=== PATIENT | female | born 1995 | race Caucasian/White ===

== ENCOUNTER 2022-05-17 11:41 | Emergency (ER) | payer BC, SELFPAY ==
[2022-05-17 11:50] VITALS: BP 132/79; PULSE 99; RESP 18; TEMP 36.5; O2SAT 100
--- NOTE | 2022-05-17 12:54 | ED.PREGNANCY ---
HPI - General Chief complaint: HEEL BUFFER Stated complaint: leaking fluid, not feeling baby- 17 weeks preg Time Seen by Provider: 05/17/22 12:39 Source: patient Mode of arrival: other (car) Limitations: no limitations History of Present Illness HPI Narrative: Keya Horne is a 26 y/o female who is a . She is about 17 weeks with reports of having a gush of fluid leak from her vagina this AM when she got up and then about 2 other times. SHe called her OB who encouraged her to go the ED to get checked out. She reports she is still feeling the baby move. Her heart tone here is 150. She denies vaginal bleeding, denies lower abdominal pain/cramping. She admits to lower back pain but reports this has been present with the whole . Related Data Home Medications Medication Instructions Recorded Confirmed No Home Medications 05/17/22 05/17/22 Allergies Allergy/AdvReac Type Severity Reaction Status Date / Time No Known Allergies Allergy Verified 05/17/22 12:14 Review of Systems Review of Systems: CONSTITUTIONAL: Denies fever, chills, or sweats. EYES: Denies visual changes, redness, or discharge. ENT: Denies rhinorrhea, congestion, sore throat, or otalgia. CARDIOVASCULAR: Denies chest pain, palpitations, or edema. RESPIRATORY: Denies cough or dyspnea. GASTROINTESTINAL: Denies abdominal pain, nausea, vomiting, or diarrhea. GENITOURINARY: Denies dysuria or hematuria. SKIN: Denies rash or itching. MUSCULOSKELETAL: Denies back pain, joint pain, or myalgia. NEUROLOGIC: Denies headache, numbness, dizziness, or weakness. PSYCHIATRIC: Denies anxiety or depression. Reports being about 17 weeks and had 3 episodes of leaking of clear fluid from her vagina today. PMFSH Past Medical History Medical History (Updated 05/17/22 @ 13:38 by Lara France APRN) Miscarriage UTI (urinary tract infection) Exam Narrative: GENERAL: Well-appearing, well-nourished, and in no acute distress. HEAD: Normocephalic, atraumatic. EYES: PERRLA and EOMI. ENT: Nares clear, no rhinorrhea or epistaxis. Mucous membranes moist. Oropharynx without tonsillar hypertrophy exudate or other lesions. Bilateral TMs pearly horne nonbulging NECK: Supple. No adenopathy or masses. No carotid bruits or JVD CHEST: Clear to auscultation. No respiratory distress. No wheezes rales or rhonchi HEART: Regular rate and rhythm. No murmur heard. Normal peripheral pulses. ABDOMEN: Soft, nontender, nondistended, normal active bowel sounds. EXTREMITIES: Normal range of motion. No edema. SKIN: Warm, dry, no rash. NEURO: No focal deficits. Alert and oriented x3. PSYCH: Normal mood and affect. Course Consultations Consultation #1: Dr. Xiong Date: 05/17/22 Time: 13:30 Vital Signs Vital signs: Vital Signs Temperature 36.5 C 05/17/22 11:50 Pulse Rate 99 05/17/22 11:50 Respiratory Rate 18 05/17/22 11:50 Blood Pressure 132/79 05/17/22 11:50 Pulse Oximetry 100 05/17/22 11:50 Oxygen Delivery Room Air 05/17/22 11:50 Temperature 36.5 C 05/17/22 11:50 Pulse Rate 99 05/17/22 11:50 Respiratory Rate 18 05/17/22 11:50 Blood Pressure 132/79 05/17/22 11:50 Pulse Oximetry 100 05/17/22 11:50 Oxygen Delivery Room Air 05/17/22 11:50 MDM - OB/Uterine Contractions MDM Narrative Medical decision making narrative: Patient presents after noticing a gush of fluid from her vagina about 3 times today. She denies abdominal pain/cramping. Denies any vaginal bleeding. She reports some lower back pain that has been present since the start of her . Patient denies any dysuria/fever/chills. Plan to do a pelvic exam and check the PH of her vaginal fluid and will touch base with her OB Dr. Xiong. Amniotic fluid test was negative, pelvic exam completed and Cervix is closed, no bleeding noted. Patient does have thin whitish vaginal discharge. Waiting to hear back from Dr. Xiong. Talked with Dr. Xiong and
--- NOTE | 2022-05-17 13:24 | PC.NURSE ---
AROM preformed by Sindhu France APRN. AROM was negative at bedside. Pelvic exam preformed at this time as well.
[2022-05-17 13:55] VITALS: BP 137/78; PULSE 98; RESP 20; O2SAT 100
== END 2022-05-17 13:55 | disposition home or self-care (01) ==
PROVIDERS: Emergency Provider Nurse Practitioner Family; PCP Obstetrics & Gynecology
DX: O26.892 Other specified pregnancy related conditions, second trimester (principal); N89.8 Other specified noninflammatory disorders of vagina; Z87.440 Personal history of urinary (tract) infections; Z3A.17 17 weeks gestation of pregnancy
CPT/HCPCS: 99284

== ENCOUNTER 2022-09-04 13:19 | Emergency (ER) | payer BC, SELFPAY ==
[2022-09-04 13:30] VITALS: BP 133/68; PULSE 101; RESP 20; TEMP 37.4; O2SAT 100
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
== END 2022-09-04 15:04 | disposition home or self-care (01) ==
PROVIDERS: Emergency Provider Registered Nurse
DX: O99.891 Other specified diseases and conditions complicating pregnancy (principal); Z3A.00 Weeks of gestation of pregnancy not specified; H61.21 Impacted cerumen, right ear
CPT/HCPCS: 69209; 99213; A9270; G0463

== ENCOUNTER 2022-10-03 04:59 | Inpatient (IN) | payer BC, SELFPAY ==
[2022-10-03] VITALS (24 sets, daily range): BP systolic 101–157; BP diastolic 53–101; PULSE 86–108; TEMP 37.2; BMI 35.5
[2022-10-03 06:28] LABS: Basophils Absolute Auto 0.1 K/mm3 (0.0-0.1); Basophils Percent Auto 0.3 % (0.2-1.2); Eosinophils Absolute Auto 0.3 K/mm3 (0-0.3); Eosinophils Percent Auto 1.6 % (0-4.4); Hematocrit 33.5 % (37.0-47.0); Immature Granulocyte Absolute 0.11 K/mm3 (0.00-0.031); Immature Granulocyte Percent A 0.7 % (0-0.5); Lymphocytes Absolute Auto 2.86 K/mm3 (0.9-3.2); Lymphocytes Percent Auto 18.3 % (18.3-44.2); Mean Corpuscular HGB Conc 32.8 g/dl (32-36); Mean Corpuscular Hemoglobin 29.4 pg (26-34); Mean Corpuscular Volume 89.6 fl (80-100); Monocytes Absolute Auto 1.3 K/mm3 (0.1-0.6); Monocytes Percent Auto 8.2 % (2.6-8.5); Neutrophils Absolute Auto 11.1 K/mm3 (1.3-6.7); Neutrophils Percent Auto 70.9 % (45.5-73.1); Platelet Count Result 392 k/mm3 (150-375); Red Blood Count 3.74 M/mm3 (4.2-5.4); Red Cell Distribution Width 13.2 % (11.5-14.5); White Blood Count 15.6 K/mm3 (4.5-10.0)
[2022-10-03 06:29] LABS: Anion Gap 8 mmol/L (8-16); Blood Urea Nitrogen 10 mg/dL (7-17); Calcium 8.7 mg/dL (8.4-10.2); Carbon Dioxide 20 mmol/L (22-30); Chloride 105 mmol/L (98-107); Estimated Glomerular Filt Rate > 60; Glucose 85 mg/dL (65-110); Potassium 3.7 mmol/L (3.4-5.0); Sodium 133 mmol/L (137-145)
[2022-10-03] MEDS: DINOPROSTONE 10 MG VAG INSERT VAGINAL (07:20)
--- NOTE | 2022-10-03 07:23 | PM.IMHP ---
H&P: HPI History of Present Illness Date/Time: 10/03/22 07:23 Chief Complaint: IOL, for gestational hypertension, and newly diagnosed GDMA-1, blood pressures have been mild, and pt had denied any current headache, epigastric pain and visual changes, pt does have bilateral 2+ lower extremity edema. Pt diaganosed GDMA-1 after LGA noted on growth ultrasound. fastings ok, even after diet teaching breakfast range from 140-170. Will monitor closely in labor. Pt has a hx of anemia, PCOS, and GBS+. dr. samano co-managing care Review of Systems Review of Systems: All systems reviewed & are unremarkable except as noted in HPI and below PMFSH Past Medical History Medical History Miscarriage UTI (urinary tract infection) Family History Family History Father Blood disorder Social History Social History Social History: Caffeine-daily Smoking status: Never smoker Alcohol intake: former Alcohol use details: former social is 8 months Substance use: never Substance use type: does not use Lack of Transportation: No Lack of Food: Never True Current Housing: I Have Housing Concerned About Future Housing: No Difficulty Paying Gas/Electric Bills: No Difficulty Paying for Meds: No Currently Unemployed: No Education: Trade/Vocational Certificate Difficulty w/ Childcare or Family Care: No Living arrangements: with family Gender identity (if verbalized by the patient): Female Meds Home Medications and Allergies Home Medications Medication Instructions Recorded Confirmed Type ondansetron 4 mg disintegrating 4 mg PO Q6-8H PRN Nausea 09/04/22 09/13/22 History tablet prenat.vits,taj,[id number] 1 tablet PO DAILY 09/13/22 09/13/22 History Allergies Allergy/AdvReac Type Severity Reaction Status Date / Time No Known Allergies Allergy Verified 09/13/22 08:43 Vital Signs Vital Signs - 24 hr 10/03/22 07:01 10/03/22 07:16 Pulse Rate 91 98 Blood Pressure 134/73 133/74 Exam Const: General: cooperative, healthy appearing and comfortable Resp: Effort & Inspection: normal respiratory effort and able to speak in complete sentences Cardio: Rate: regular rate Rhythm: regular rhythm GI: Other: gravid, soft : Other: deferred, exam by RN Skin: General skin exam: normal color Extrem: Other: bilateral 2 + edema Psych: Appearance: grossly normal and well kempt H&P: Results Labs Labs: Short CBC 10/03/22 Range/Units 06:08 WBC 15.6 H (4.5-10.0) K/mm3 Hgb 11.0 L (12.0-15.0) g/dL Hct 33.5 L (37.0-47.0) % Plt Count 392 H (150-375) k/mm3 BMP 10/03/22 06:08 Sodium 133 L Potassium 3.7 Chloride 105 Carbon Dioxide 20 L BUN 10 Creatinine 0.50 L Glucose 85 Calcium 8.7 Assessment and Plan Assessment and plan (1) Gestational hypertension w/o significant proteinuria in 3rd trimester: Code(s): O13.3 - Gestational [-induced] hypertension without significant proteinuria, third trimester Status: Acute (2) Gestational diabetes: Code(s): O24.419 - Gestational diabetes mellitus in , unspecified control Status: Acute Plan IOL, cervadil
[2022-10-03 07:54] LABS: Glucose Point of Care 91 mg/dl (65-105)
[2022-10-03 12:16] LABS: Glucose Point of Care 167 mg/dl (65-105)
[2022-10-03 15:56] LABS: Glucose Point of Care 79 mg/dl (65-105)
[2022-10-03 15:56] LABS: Rapid Plasma Reagin Non-Reactive (NonReactive)
--- NOTE | 2022-10-03 18:00 | WPDANESEPPF ---
Anes - Initial Pre Proc Eval Procedure: Labor epidural Date/Time: 10/03/22 18:00 Surgeon: Erika Lopes CNM Pre Op Diagnosis: Labor pain Pre Op Diagnosis: IOL Patient Data Age: 27 Gender: F Height: 1.6 m Weight: 91 kg Last Vital Signs Temp 37.2 C 10/03/22 12:11 Pulse 102 H 10/03/22 13:31 BP 126/57 L 10/03/22 13:31 O2 Del Method Room Air 10/03/22 07:12 Allergies Allergy/AdvReac Type Severity Reaction Status Date / Time No Known Allergies Allergy Verified 09/13/22 08:43 Home Medications Medication Instructions Recorded Confirmed Type prenat.vits,taj,jgj-hyjt-rrezr 1 tablet PO DAILY 09/13/22 10/03/22 History Laboratory Tests 10/03/22 10/03/22 10/03/22 06:08 07:51 12:13 WBC 15.6 H K/mm3 (4.5-10.0) RBC 3.74 L M/mm3 (4.2-5.4) Hgb 11.0 L g/dL (12.0-15.0) Hct 33.5 L % (37.0-47.0) MCV 89.6 fl (80-100) MCH 29.4 pg (26-34) MCHC 32.8 g/dl (32-36) RDW 13.2 % (11.5-14.5) Plt Count 392 H k/mm3 (150-375) MPV 11.0 H fl (7.4-10.4) Immature Gran % (Auto) 0.7 H % (0-0.5) Neut % (Auto) 70.9 % (45.5-73.1) Lymph % (Auto) 18.3 % (18.3-44.2) [place] % (Auto) 8.2 % (2.6-8.5) Eos % (Auto) 1.6 % (0-4.4) Baso % (Auto) 0.3 % (0.2-1.2) Lymph # (Auto) 2.86 K/mm3 (0.9-3.2) [place] # (Auto) 1.3 H K/mm3 (0.1-0.6) Eos # (Auto) 0.3 K/mm3 (0-0.3) Baso # (Auto) 0.1 K/mm3 (0.0-0.1) Abs Immat Gran (auto) 0.11 H K/mm3 (0.00-0.031) Absolute Neuts (auto) 11.1 H K/mm3 (1.3-6.7) Absolute Nucleated RBC 0.0 K/mm3 (0.0-0.012) Nucleated RBC % 0.0 % (0.0-0.2) Sodium 133 L mmol/L (137-145) Potassium 3.7 mmol/L (3.4-5.0) Chloride 105 mmol/L (98-107) Carbon Dioxide 20 L mmol/L (22-30) Anion Gap 8 mmol/L (8-16) BUN 10 mg/dL (7-17) Creatinine 0.50 L mg/dL (0.7-1.0) Estim Creat Clear Calc Not Reportable Estimated GFR > 60 (59 - ) Glucose 85 mg/dL (65-110) POC Capillary Glucose 91 mg/dl 167 H mg/dl (65-105) (65-105) Calcium 8.7 mg/dL (8.4-10.2) RPR Non-reactive (NonReactive) Blood Type O Positive Antibody Screen Negative 10/03/22 15:52 WBC RBC Hgb Hct MCV MCH MCHC RDW Plt Count MPV Immature Gran % (Auto) Neut % (Auto) Lymph % (Auto) [place] % (Auto) Eos % (Auto) Baso % (Auto) Lymph # (Auto) [place] # (Auto) Eos # (Auto) Baso # (Auto) Abs Immat Gran (auto) Absolute Neuts (auto) Absolute Nucleated RBC Nucleated RBC % Sodium Potassium Chloride Carbon Dioxide Anion Gap BUN Creatinine Estim Creat Clear Calc Estimated GFR Glucose POC Capillary Glucose 79 mg/dl (65-105) Calcium RPR Blood Type Antibody Screen Patient hx anesthesia problems: none Family hx anesthesia problems: none Results Review: All pre-operative results and documents have been reviewed as part of the pre-operative evaluation. [facility] Past Medical History Medical History Miscarriage UTI (urinary tract infection) Family History Family History Father Blood disorder Social History Social History Social History: Caffeine-daily Smoking status: Never smoker Second hand tobacco smoke exposure: No Alcohol intake: former Alcohol use details: former social is 8 months pr
[2022-10-03] MEDS: fentaNYL CITRATE INJ (*CRX) 100 MCG/2 ML VIAL 50 MCG IV PUSH ×2 (18:36→21:42)
[2022-10-03] MEDS: LACTATED RINGERS 1,000 ML 125 ML IV CONT (20:48)
[2022-10-03 22:04] LABS: Glucose Point of Care 127 mg/dl (65-105)
[2022-10-03] MEDS: OXYTOCIN 30 UNITS/NS 500 ML 30 UNITS/500 ML BAG IV CONT (22:10)
[2022-10-03] MEDS: AMPICILLIN 2 GM/NS 100 ML 2 GM/100 ML BAG IVPB (22:11)
[2022-10-04] VITALS (261 sets, daily range): BP systolic 105–177; BP diastolic 49–149; PULSE 80–126; RESP 16–18; TEMP 36.6–38.6; O2SAT 95–100
[2022-10-04] MEDS: AMPICILLIN 1 GM/NS 50 ML 1 GM/50 ML BAG IVPB ×6 (03:09→21:54)
[2022-10-04] MEDS: LACTATED RINGERS 1,000 ML 125 ML IV CONT ×3 (03:09→17:46)
[2022-10-04 05:31] LABS: Glucose Point of Care 86 mg/dl (65-105)
--- NOTE | 2022-10-04 08:02 | PM.OBPNLAB ---
Pain Control Date/time seen: 10/04/22 08:02 SVE /-2 AROM moderate amount of clear odorless fluid, contractions q3, FHR category 1, anticipate vaginal delivery
[2022-10-04] MEDS: fentaNYL CITRATE INJ (*CRX) 100 MCG/2 ML VIAL IV PUSH (08:53)
[2022-10-04 10:54] LABS: Glucose Point of Care 81 mg/dl (65-105)
[2022-10-04 15:21] LABS: Glucose Point of Care 61 mg/dl (65-105)
[2022-10-04 18:42] LABS: Glucose Point of Care 56 mg/dl (65-105)
[2022-10-04 19:02] LABS: Glucose Point of Care 76 mg/dl (65-105)
[2022-10-04 21:05] LABS: Glucose Point of Care 65 mg/dl (65-105)
[2022-10-04] MEDS: ACETAMINOPHEN 500 MG TABLET 1000 MG (21:26)
[2022-10-04 21:31] LABS: Glucose Point of Care 73 mg/dl (65-105)
[2022-10-04] MEDS: diphenhydrAMINE HCl INJ 50 MG/ML VIAL 25 MG IV PUSH (22:52)
[2022-10-04 23:12] LABS: Glucose Point of Care 63 mg/dl (65-105)
[2022-10-04 23:39] LABS: Glucose Point of Care 62 mg/dl (65-105)
[2022-10-04 23:39] LABS: Glucose Point of Care 64 mg/dl (65-105)
[2022-10-05] VITALS (44 sets, daily range): BP systolic 96–155; BP diastolic 53–99; PULSE 102–173; RESP 16–22; TEMP 36.8–37.8; O2SAT 98–100
[2022-10-05 00:04] LABS: Glucose Point of Care 71 mg/dl (65-105)
[2022-10-05] MEDS: OXYTOCIN 30 UNITS/NS 500 ML 30 UNITS/500 ML BAG IV CONT (00:37)
[2022-10-05] MEDS: AMPICILLIN 1 GM/NS 50 ML 1 GM/50 ML BAG IVPB (00:47)
[2022-10-05] MEDS: OXYTOCIN 30 UNITS/NS 500 ML 30 UNITS/500 ML BAG 125 UNITS IV CONT ×2 (03:02→03:33)
--- NOTE | 2022-10-05 03:04 | P.PCNOB_ITS ---
OB - Delivery Note Procedure Delivery date: 10/05/22 Procedure: vaginal delivery Events: Gestational Diabetes, Gestational Hypertension and Macrosomia Induction method: AROM, Per Misoprostol Protocol, Per Pitocin Protocol and Per Cervidil Protocol Delivery monitor: External FHT, External Uterine and Internal Uterine Route of delivery: Episiotomy description: Right Mediolateral (skin only) Delivery repair: vicryl Specimen: Yes Quantitative Blood Loss (ml): 98 Anesthesia type: Epidural Disposition: Floor [place] Baby Date of : 10/05/22 Time of : 02:26 Weeks of gestation at delivery: 37 Infant gender: Male Weight (pounds): 8 Weight (ounces): 6 presentation: vertex position: Other (OA to DEBBY) Placenta delivery description: Spontaneous Cord Vessel Description: 3 Vessels and Clamped/Cut Narrative: position OA, pt unable to push past upper lip, RML, and head delivered and rotated DEBBY. pt head back, pao, called for dr and extra staff. unable to rotate, posterior arm rotated upward and after 2 minutes, posterior arm delivered and fetus then delivered without difficulty. baby to RN for evaluation, nursing secretary called and at bsdr samano notified of delivery
[2022-10-05] MEDS: HYDROcodone/acetaminophen (*CRX) 5-325 MG TABLET 1 TAB PO ×2 (04:05→11:11)
[2022-10-05] MEDS: IBUPROFEN 600 MG TABLET PO (11:10)
[2022-10-05] MEDS: TETANUS,DIPHTHERIA,AC PERTUSSIS ADULT (0.5 ML) BOOSTRIX IM (12:28)
--- NOTE | 2022-10-08 12:17 | PM.OBDSVD ---
DS: Admitting Diagnosis Discharge Date 10/05/22 Admitting Diagnosis IOL DS: Discharge Diagnosis Discharge Diagnosis (1) Vaginal delivery: Code(s): O80 - Encounter for full-term uncomplicated delivery Status: Acute OB - DS: Summary OB Procedures : PIH Mgmt OB Procedures Intrapartum: Spontaneous Vag Delivery and Other (shoulder dystocia) OB Procedures: : None Time Spent with Patient Time attestation: Total time spent providing and/or coordinating discharge services: Discharge Plan Discharge Consulting providers: Erika Lopes; Keila Espinal Discharging Clinician: Erika Lopes Patient Disposition: Home, Self-Care Activity: may shower, as tolerated and pelvic rest Diet: regular Discharge Instructions: Education: Mom and Baby Guide Given to: Mother Follow-Up: Call your delivering provider's office for an appointment to be seen in: 4 Weeks Mom and baby should come to the [facility] for the follow-up appointment. Appointment Date/Time: at What to expect at your follow-up visit: Call [phone] if you are unable to keep your appointment time. BREAST CARE: * Wear a snug supportive bra. * For engorgement discomfort: Bottle Feeding: * May apply ice packs * EPISIOTOMY/PERINEAL CARE: * Until bleeding stops, use your yanick bottle after urinating * Change your pad frequently throughout the day * You may take sitz baths several times a day (fill your bathtub with warm water and soak for 20 minutes.) Do NOT bathe in the water * No tub baths until seen by your physician - You may shower ACTIVITY: * Rest as much as possible. * Do not exercise or lift anything heavier than your baby (such as laundry or other children.) * Avoid stairs or driving as much as possible. * Do not put anything into the vagina. No douching, tampons, or sexual activity until seen by physician. NOTIFY PHYSICIAN IF YOU HAVE ANY QUESTIONS OR IF ANY OF THE FOLLOWING SYMPTOMS OCCUR: * If your episiotomy or incision becomes red, swollen, or more painful than what you have experienced in the hospital. * If your vaginal bleeding becomes foul smelling. * If your vaginal bleeding becomes more heavy than a period or if your bleeding changes from pink to bright red. However, you may pass an occasional walnut-sized clot once or twice for the first week . * If you experience a sharp, shooting pain in you calves. * If you discover a hard, reddened area on your breast or if you experience flu-like symptoms. DIET: * Eat regular, well-balanced meals. * Drink plenty of fluids daily. If , drink to thirst. Patient Instructions: Antibiotic Form Stand Alone Forms: General Discharge Information Follow-up/Referrals: Erika Lopes CNM [Certified Nurse Personal Clothing Laundry Aide] - 4 Weeks Discharge Medications: Continued prenat.vits,taj,iha-wqmn-ftnqv Tablet 1 tablet PO DAILY Date of admission: 10/03/22 04:59 Primary Care Provider: PHYSICIAN NOT ON STAFF,NONSTAFF Admitting Provider: Pepe Xiong Attending physician on admission: Pepe Xiong Condition: Stable
== END 2022-10-05 13:00 | disposition home or self-care (01) | DRG 807 ==
LOC: ANHLDR 05:12 → ANHOB2 10-05 12:19 → ANHLDR 10-08 10:44 → ANHOB2 10-08 10:44
PROVIDERS: Advanced Practice Midwife; Admitting Provider Obstetrics & Gynecology; Visit Provider Obstetrics & Gynecology
DX: O66.0 Obstructed labor due to shoulder dystocia (principal); Z37.0 Single live birth; O13.4 Gestational [pregnancy-induced] hypertension without significant proteinuria, complicating childbirth; O99.824 Streptococcus B carrier state complicating childbirth; O70.0 First degree perineal laceration during delivery; O99.284 Endocrine, nutritional and metabolic diseases complicating childbirth; E28.2 Polycystic ovarian syndrome; O24.429 Gestational diabetes mellitus in childbirth, unspecified control; Z3A.37 37 weeks gestation of pregnancy
CPT/HCPCS: 36415; 80048; 82948; 85025; 86592; 86850; 86900; 86901; 88307; 90715; A9270; J0290; J1200; J2590; J2795; J3010; J7120

== ENCOUNTER 2024-08-06 14:24 | Outpatient (CLI) | payer BC, SELFPAY ==
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
[2024-08-06 15:19] LABS: Hemoglobin 10.9 g/dL (12.0-15.0); Mean Corpuscular Hemoglobin 29.8 pg (26-34); Mean Corpuscular Volume 90.2 fl (80-100); Mean Platelet Volume 10.6 fl (7.4-10.4); Platelet Count Result 384 k/mm3 (150-375); Red Blood Count 3.66 M/mm3 (4.2-5.4); Red Cell Distribution Width 13.7 % (11.5-14.5); White Blood Count 18.3 K/mm3 (4.5-10.0)
[2024-08-06 17:07] LABS: Syphilis IgG/IgM Antibody Negative (Negative)
== END 2024-08-06 14:25 | disposition home or self-care (01) ==
LOC: ANHLAB 14:27
PROVIDERS: PCP Nurse Practitioner; Visit Provider Obstetrics & Gynecology
DX: Z01.812 Encounter for preprocedural laboratory examination (principal)
CPT/HCPCS: 36415; 85027; 86593; 86850; 86900; 86901

== ENCOUNTER 2024-08-07 05:32 | Inpatient (IN) | payer BC, SELFPAY ==
[2024-08-07] VITALS (75 sets, daily range): BP systolic 96–143; BP diastolic 54–90; PULSE 71–178; RESP 12–18; TEMP 36.7–37.4; O2SAT 95–100
--- OUTSIDE RECORDS SUMMARY | 2024-08-07 05:39 | XMS_ITS | Data Portability ---
Author Organization [facility] [place] Address [address] [place] [address] [place] [address] Care Team Providers Care Log Feeder Name Role Phone LUIS LAM Primary Care Provider [phone] Assessment Encounter Date Assessment Date Assessment LastModified by Organization Details LastModified Time 09/28/2022 09/28/2022 Patient is _36__weeks . Discussed plan. Not available 09/28/2022 11:30:37 11/09/2022 11/09/2022 normal exam f/u wwe Not available 11/09/2022 13:15:56 Plan of Treatment Reminders Order Date Submit Date Provider Last Modified By Organization Details Last Modified Time Details Appointments None recorded. Lab None recorded. Referral None recorded. Procedures None recorded. Surgeries None recorded. Imaging US, obstetric, biophysical profile + non-stress test 2022 023 [email or web address] [facility], [address], [place], [address], 18:00:37 non-stress test 2022 023 [email or web address] [facility], [address], [place], [address], 12:30:21 Medication Orders spironolact one 25 mg tablet 2022 023 [id number], [address], [place], [place], [id number], 13:16:16 Patient TargetsNo targets recorded. Patient InstructionsNo instructions recorded. Reason for Referral None Reported. Results Created Date Observation Date Name Description Value Unit Range Abnormal Flag Note LastModifiedBy Organization Detail LastModifiedTime 09/18/19 23 09/17/2022 GTT - GESTA RAQUEL L LEXX N, ACOG OB glucose, 1 hour screen 132 mg/dL 70-139 Not Available [facility] (Lab) [address] [facility] [address], [place], [address], 09/18/2022 02:24:37 09/22/1909/21/2022 CULTU RE: GROUP B STREP SCREE N, REFLE X SUSCE PTIBI LITY result report SEE RESULT S BELOW abnormal Test: Cultu re: Group B Strep , Refle x Susce ptibi lity ([facility] ) Speci men Sourc e: Vagin a/Rec belkis Speci men Type: Vagin al/Re ctal Speci men Date: 2022 11:13 AM Resul t Date: 2022 5:24 PM Resul t Statu s: Final resul t Abnor mal: Yes Resul jackie Lab: [facility] [address] [facility] [address] Tel: CULTU RE ----- ----- ----- --- Posit alphonse for Strep tococ cus agala ctiae (Grou p B) (Abno rmal) Clind amyci n susce ptibl e, eryth romyc in resis tant. The clind amyci n induc tion test ( D-t est ) is negat alphonse, there fore clind amyci n shoul d be clini broderick effec tive again st this isola te. Not Available [facility] (Lab) [address] [facility], [place], [address], 09/27/2022 18:26:39 09/29/1909/28/2022 CBC W/DIF F WBC 14.4 10'3/ uL 3.6-10 .[address] [facility] (Lab) [address], [place], [address], 09/29/2022 03:43:01 09/29/19 23 09/28/2022 CBC W/DIF F RBC 3.94 10'6/ uL (based on docume nted legal sex) 4.10-5 [address] [facility] (Lab) [address], [place], [address], 09/29/2022 03:43:01 09/29/19 23 09/28/2022 CBC W/DIF F HGB 11.5 g/dL (based on docume nted legal sex) 11.9-1 [address] [facility] (Lab) [address] [facility], [place], [address], 09/29/2022 03:43:01 09/29/19 23 09/28/2022 CBC W/DIF F HCT 35.6 % (based on docume nted legal sex) 37.4-4 [address] [facility] (Lab) [address], [place], [address], 09/29/2022 03:43:01 09/29/19 23 09/28/2022 CBC W/DIF F MCV 90.4 fL 82.0-[address] [facility] (Lab) [address], [place], [address], 09/29/2022 03:43:01 09/29/19 23 09/28/2022 CBC W/DIF F MCH 29.2 pg 27.0-[address] [facility] (Lab) [address] [facility], [place], [address], 09/29/2022 03:43:01 09/29/19 23 09/28/2022 CBC W/DIF F MCHC 32.3 g/dL 32.0-[address] [facility] (Lab) [address] [facility], [place], [address], 09/29/2022 03:43:01 09/29/19 23 09/28/2022 CBC W/DIF F RDW 13.4 % 11.0-[address] [facility] (Lab) [address] [facility], [place], [address], 09/29/2022 03:43:01 09/29/19 23 09/28/2022 CBC W/DIF F plt 364 10'3/ uL 150-[address] [facility] (Lab) [address] [facility], [place], [address], 09/29/2022 03:43:01 09/29/19 23 09/28/2022 CBC W/DIF F MPV 11.7 fL 9.8-[address] [facility] (Lab) [address] [facility], [place], [address], 09/29/2022 03:43:01 09/29/19 23 09/28/2022 CBC W/DIF F NRBC's 0.0 % [address] [facility] (Lab) [address] [facility], [place], [address], 09/29/2022 03:43:01 09/29/19 23 09/28/2022 CBC W/DIF F absolute NRBCs 0.0 10'3/ uL [address] [facility] (Lab) [address] [facility], [place], [address], 09/29/2022 03:43:01 09/29/19 23 09/28/2022 CBC W/DIF F neutrophils 76.6 % 37.0-7 2[address] [facility] (Lab) [address] [facility], [place], [address], 09/29/2022 03:43:01 09/29/19 23 09/28/2022 CBC W/DIF F lymphocytes 15.2 % 16.0-4 8[address] [facility] (Lab) [address] [facility], [place], [address], 09/29/2022 03:43:01 09/29/19 23 09/28/2022 CBC W/DIF F monocytes 5.6 % 4.0-[address] [facility] (Lab) [address] [place], [address], 09/29/2022 03:43:01 09/29/19 23 09/28/2022 CBC W/DIF F eosinophils 1.7 % 0.0-9. [address] [facility] (Lab) [address] [place], [address], 09/29/2022 03:43:01 09/29/19 23 09/28/2022 CBC W/DIF F basophils 0.3 % 0.0-2. [address] [facility] (Lab) [address] [facility], [place], [address], 09/29/2022 03:43:01 09/29/19 23 09/28/2022 CBC W/DIF F immature granulocytes 0.6 % no define d refere nce range Not Available [facility] (Lab) [address] [facility], [place], [address], 09/29/2022 03:43:01 09/29/19 23 09/28/2022 CBC W/DIF F absolute neutrophils 11.0 10'3/ uL 1.1-6. [address] [facility] (Lab) [address] [facility] [facility], [place], [address], 09/29/2022 03:43:01 09/29/19 23 09/28/2022 CBC W/DIF F absolute lymphocytes 2.2 10'3/ uL 0.7-3. [address] [facility] (Lab) [address] [place], [address], 09/29/2022 03:43:01 09/29/19 23 09/28/2022 CBC W/DIF F absolute monocytes 0.8 10'3/ uL 0.3-1. [address] [facility] (Lab) [address] [facility], [place], [address], 09/29/2022 03:43:01 09/29/19 23 09/28/2022 CBC W/DIF F absolute eosinophils 0.2 10'3/ uL 0.0-0. [address] [facility] (Lab) [address] [facility], [place], [address], 09/29/2022 03:43:01 09/29/19 23 09/28/2022 CBC W/DIF F absolute basophils 0.0 10'3/ uL 0.0-0. [address] [facility] (Lab) [address] [facility], [place], [address], 09/29/2022 03:43:01 09/29/19 23 09/28/2022 CBC W/DIF F absolute immature granulocytes 0.1 10'3/ uL 0.00-0 .10 2022 1:40 AM: P indic ates parti al resul ts on a panel have been relea sed. Addit ional resul ts will follo w. 2022 1:40 AM: This resul t has been final verif ied. No addit ional or lara ed resul ts are expec malika. Not Available [facility] (Lab) [address] [facility], [place], [address], 09/29/2022 03:43:01 09/29/19 23 09/28/2022 URIC ACID uric acid 3.4 mg/dL 2.3-6. [address] [facility] (Lab) [address] [facility] [facility], [place], [address], 09/29/2022 03:43:02 09/29/19 23 09/28/2022 CMP(C OMPRE HENSI VE METAB OLIC PANEL ) sodium 136 mmol/ L 133-[address] [facility] (Lab) [address] [facility], [place], [address], 09/29/2022 03:43:03 09/29/19 23 09/28/2022 CMP(C OMPRE HENSI VE METAB OLIC PANEL ) potassium 4.5 mmol/ L 3.5-5. [address] [facility] (Lab) [address] [facility], [place], [address], 09/29/2022 03:43:03 09/29/19 23 09/28/2022 CMP(C OMPRE HENSI VE METAB OLIC PANEL ) chloride 106 mmol/ L 98-[address] [facility] (Lab) [address] [facility], [place], [address], 09/29/2022 03:43:03 09/29/19 23 09/28/2022 CMP(C OMPRE HENSI VE METAB OLIC PANEL ) carbon dioxide 19 mmol/ L 21-[address] [facility] (Lab) [address] [facility], [place], [address], 09/29/2022 03:43:03 09/29/19 23 09/28/2022 CMP(C OMPRE HENSI VE METAB OLIC PANEL ) anion gap 11 mmol/ L 4-[address] [facility] (Lab) [address] [facility], [place], [address], 09/29/2022 03:43:03 09/29/19 23 09/28/2022 CMP(C OMPRE HENSI VE METAB OLIC PANEL ) blood urea nitrogen 8 mg/dL 7-25 Not Available [facility] (Lab) [address] [facility] [address], [place], [address], 09/29/2022 03:43:03 09/29/19 23 09/28/2022 CMP(C OMPRE HENSI VE METAB OLIC PANEL ) creatinine 0.58 mg/dL 0.60-1 .[address] [facility] (Lab) [address] [facility], [place], [address], 09/29/2022 03:43:03 09/29/19 23 09/28/2022 CMP(C OMPRE HENSI VE METAB OLIC PANEL ) egfrcr (CKD-epi 2020) >90 mL/mi n/1.7 3_m2 >=[address] [facility] (Lab) [address], [place], [address], 09/29/2022 03:43:03 09/29/19 23 09/28/2022 CMP(C OMPRE HENSI VE METAB OLIC PANEL ) calcium 9.0 mg/dL 8.3-[address] [facility] (Lab) [address], [place], [address], 09/29/2022 03:43:03 09/29/19 23 09/28/2022 CMP(C OMPRE HENSI VE METAB OLIC PANEL ) glucose 97 mg/dL 70-[address] [facility] (Lab) [address], [place], [address], 09/29/2022 03:43:03 09/29/19 23 09/28/2022 CMP(C OMPRE HENSI VE METAB OLIC PANEL ) protein, total 6.1 g/dL 6.4-8. [address] [facility] (Lab) [address], [place], [address], 09/29/2022 03:43:03 09/29/19 23 09/28/2022 CMP(C OMPRE HENSI VE METAB OLIC PANEL ) albumin 3.2 g/dL 3.5-5. [address] [facility] (Lab) [address], [place], [address], 09/29/2022 03:43:03 09/29/19 23 09/28/2022 CMP(C OMPRE HENSI VE METAB OLIC PANEL ) ALT 9 units /L 9-[address] [facility] (Lab) [address], [place], [address], 09/29/2022 03:43:03 09/29/19 23 09/28/2022 CMP(C OMPRE HENSI VE METAB OLIC PANEL ) alkaline phosphatase 163 units /L 34-[address] [facility] (Lab) [address] [facility], [place], [address], 09/29/2022 03:43:03 09/29/19 23 09/28/2022 CMP(C OMPRE HENSI VE METAB OLIC PANEL ) AST 11 units /L 13-[address] [facility] (Lab) [address] [facility], [place], [address], 09/29/2022 03:43:03 09/29/19 23 09/28/2022 CMP(C OMPRE HENSI VE METAB OLIC PANEL ) bilirubin, total 0.5 mg/dL 0.2-1. [address] [facility] (Lab) [address] [facility], [place], [address], 09/29/2022 03:43:03 09/29/19 23 09/28/2022 PROTE IN/CR EATIN INE RATIO , URINE creatinine, urine 117.1 mg/dL R-No refer ence range estab lishe d for this assay Not Available [facility] (Lab) [address] [facility], [place], [address], 09/29/2022 03:43:03 09/29/19 23 09/28/2022 PROTE IN/CR EATIN INE RATIO , URINE protein, urine 31 mg/dL R-No refer ence range estab lishe d for this assay Not Available [facility] (Lab) [address] [facility], [place], [address], 09/29/2022 03:43:03 09/29/19 23 09/28/2022 PROTE IN/CR EATIN INE RATIO , URINE protein/crea tinine ratio, urine 0.26 . No Refer ence Range avail able for Rando m Urine s. A prote in to creat inine ratio of >=0.1 9 is a good predi ctor of rajinderi fican t prote inuri a. A level of <0.14 can rule out signi fican t prote inuri a. Not Available [facility] (Lab) [address], [place], [address], 09/29/2022 03:43:03 09/15/19 23 09/14/2022 US, obste tric, follo w-up No observ ation record ed. [email or web address] [facility] [address], [place], [address], 09/14/2022 18:03:37 09/15/19 23 09/14/2022 US, obste tric, follo w-up No observ ation record ed. [email or web address] [address], [place], [address], 09/17/2022 10:50:55 09/29/19 23 09/28/2022 non-s tress test No observ ation record ed. [email or web address] [facility] [address], [place], [address], 09/28/2022 12:26:03 09/29/19 23 09/28/2022 US, obste tric, bioph ysica l profi le + non-s tress test No observ ation record ed. [email or web address] [facility] [address], [place], [address], 09/28/2022 13:46:12 09/29/19 23 09/28/2022 US, obste tric, bioph ysica l profi le + non-s tress test No observ ation record ed. KATIE [address], [place], [address], 10/08/2022 19:29:31 Result Notes None recorded. 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 3 14:47:55 Prediabe leonardo 077747030 Active 2021 Silvia Odonnell MD [address], [place], [address], [place] [facility] 2 09:46:57 Pregnanc y 17791116 Completed 202111/05/2022 Anayeli Portillo [facility], [facility] 3 14:48:01 Increase d blood pressure 57114862 [facility] 3 14:47:55 Polycyst ic ovary syndrome 719041832 Completed 2021 Luciamadelyn Portillo [facility] 3 14:47:55 Anemia 468576105 Completed 2022 1 tab slowfe daily [facility] Pe[facility] Portillo [facility], [facility] 3 14:47:55 Gestatio nal diabetes mellitus 56759126 Completed [facility] Portillo [facility] 3 14:47:55 Problem Notes None recorded. Procedures Surgical History Date Name Laterality Status Provider Name and Address Organization Details Recorded Time 2 Date of Last Pap Smear completed Jeimy Guzman [facility] 03/19/2022 09:26:36 2 Dilation and Curettage completed Jeimy Guzman [facility] 08/03/2022 10:02:33 Imaging Results Imaging Date Name Status LastModified by Organiz ation Details LastModified Time 09/14/2022 US, obstetric, follow-up completed alannah Casey [address], [place], [address], 09/14/2022 18:03:37 09/14/2022 US, obstetric, follow-up completed [email or web address] [address], [place], [address], 09/17/2022 10:50:55 09/28/2022 non-stress test completed [email or web address] [place] [address], [place], [address], 09/28/2022 12:26:03 09/28/2022 US, obstetric, biophysical profile + non-stress test completed [email or web address] [facility] [address], [place], [address], 09/28/2022 13:46:12 09/28/2022 US, obstetric, biophysical profile + non-stress test completed KATIE [address], [place], [address], 10/08/2022 19:29:31 Procedure Notes None recorded. Medical Equipment None Reported. Allergies No known drug allergies Medications Name Sig Start Date Stop Date Status Note LastModified by Organization Details LastModified Time medroxypr ogesteron e 10 mg tablet TAKE 1 TABLET BY MOUTH ONCE FOR 10 DAYS. REPORT CD ONCE BLEEDING STARTS 03/19 completed Not Available Not Available Not Available neomycin- polymyxin -hydrocor t 3.5 mg/mL-10, 000 unit/mL-1 % ear solution INSTILL 3 DROPS TO RIGHT EAR THREE TIMES DAILY FOR 7 DAYS 09/21 completed Not Available Not Available Not Available BD Luer-Adelita Syringe 3 mL 25 x 1 1/2 USE ONCE IN THE EVENING FOR IN THE MUSCLE INJECTIO N INTO BUTTOCKS WITH PROGESTE HERIBERTO IN OIL 04/09 completed Not Available Not Available Not Available clomiphen e citrate 50 mg tablet TAKE 2 TABLETS BY MOUTH EVERY MORNING FOR 3 DAYS 12/18 completed Not Available Not Available Not Available phentermi ne 37.5 mg tablet TAKE 1 TABLET BY MOUTH EVERY MORNING BEFORE BREAKFAS T active Not Available Not Available No t Available spironola ctone 25 mg tablet TAKE 1 TABLET BY MOUTH EVERY DAY active Not Available Not Available No t Available progester one 50 mg/mL intramusc ular oil 04/09 completed Not Available Not Available Not Available Hypodermi c Hickman 18 gauge x 1 1/2 12/18 completed Not Available Not Available Not Available metformin 1,000 mg tablet TAKE 1 TABLET BY MOUTH TWICE DAILY 12/18 completed Not Available Not Available Not Available estradiol 2 mg tablet TAKE 3 TABLETS BY MOUTH EVERY MORNING 12/18 completed Not Available Not Available Not Available ondansetr on 4 mg disintegr ating tablet DISSOLVE 1 TABLET ON THE TONGUE EVERY 8 HOURS 11/09 completed Not Available Not Available Not Available Ortho Tri-Cycle n (28) 0.18 mg(7)/0.2 15mg(7)/0 .25 mg(7)-0.0 35 mg tablet take 1 tablet by oral route every day 12/18 completed Prescrib ed Nuzhat e: No Locat ion: Malaika hernandez [facility] M odify By: [email or web address] h Encoun ter DateTime : 10/17/19 17 12:00:00 PM Not Available Not Available Not Available Ovidrel 250 mcg/0.5 mL subcutane ous syringe ADMINIST ER 1 SYRINGE UNDER THE SKIN EVERY DAY 12/18 completed Not Available Not Available Not Available Folplex 2.2 mg-25 mg-0.5 mg tablet TAKE 1 TABLET BY MOUTH EVERY DAY 12/18 completed Not Available Not Available Not Available nitrofura ntoin monohydra te/macroc rystals 100 mg capsule TAKE 1 CAPSULE BY MOUTH EVERY 12 HOURS FOR 7 DAYS DIRECTED 11/09 completed Not Available Not Available Not Available Vitamin 11/09 completed Not Available Not Available Not Available Baby Aspirin 11/09 completed Not Available Not Available Not Available Micro Thin Lancets 33 gauge TEST FOUR TIMES DAILY DIRECTED 09/14 completed Not Available Not Available Not Available + DHA 28 mg iron-800 mcg-200 mg oral pack TAKE 1 CAPSULE BY MOUTH ONCE DAILY 12/18 completed Not Available Not Available Not Available True Metrix Glucose Test Strip 09/14 completed Not Available Not Available Not Available True Metrix Air Glucose Meter TEST FOUR TIMES DAILY DIRECTED 09/14 completed Not Available Not Available Not Available Vitals Date Recorded Body height Body mass index (BMI) Body weight Systolic blood pressure Diastolic blood pressure Provider Name and Address Organization Details Last Updated DateTime 09/28/2022 160.02 cm 38.1 kg/m2 69111.35 955 g 146 mm[Hg] 82 mm[Hg] Jeimy Guzman [facility] 3 11:10:26 Date Recorded Body height Body mass index (BMI) Body weight Systolic blood pressure Diastolic blood pressure Systolic blood pressure Diastolic blood pressure Systolic blood pressure Diastolic blood pressure Provider Name and Address Organization Details Last Updated DateTime 3 160.02 cm 32.9 kg/m2 44293.1 8 g 151 mm[Hg] 106 mm[Hg] 160 mm[Hg] 100 mm[Hg] 140 mm[Hg] 85 mm[Hg] Jeimy Guzman [facility] 3 13:59:03 Social History Question Answer Notes LastModified by Organizat ion Details LastModified Time Tobacco Smoking Status Never Smoker Jeimy Guzman [facility], [facility] 03/19/2022 10:43:52 Do You Have An Advance Directive? No [email or web address] Information n ot available 03/19/2022 What Is Your Level Of Alcohol Consumption? Moderate [email or web address] Information not available 03/19/2022 How Many Years Have You Consumed Alcohol? 10 [email or web address] Information not available 03/19/2022 Are You Blind Or Do You Have Difficulty Seeing? No [email or web address] Information n ot available 03/19/2022 What Is Your Level Of Caffeine Consumption? Heavy [email or web address] Information not available 03/19/2022 In The 14 Days Before Symptom Onset, Have You Had Close Contact With A Laboratory-confirm ed COVID-19 While That Case Was Ill? No [email or web address] Information n ot available 03/19/2022 In The 14 Days Before Symptom Onset, Have You Had Close Contact With A Person Who Is Under Investigation For COVID-19 While That Person Was Ill? No [email or web address] Information not available 03/19/2022 Have You Been To An Area Known To Be High Risk For COVID-19? No [email or web address] Information not available 03/19/2022 Are You Deaf Or Do You Have Serious Difficulty Hearing? No [email or web address] Information not available 03/19/2022 What Type Of Diet Are You Following? REGULAR [email or web address] Information n ot available 03/19/2022 What Is The Highest Grade Or Level Of School You Have Completed Or The Highest Degree You Have Received? 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 Yes [email or web address] Information not available 03/19/2022 Have You Ever Been Counseled For Unhealthy Alcohol Use? No [email or web address] Information not available 03/19/2022 Do You Use Protection During Sex? No [email or web address] Information not available 03/19/2022 Do You Use Your Seat Belt Or Car Seat Routinely? Yes [email or web address] Information not available 03/19/2022 Do You Have Smoke And Carbon Monoxide Detectors In Your Home? Yes Information not available 03/19/2022 How Much Tobacco Do You Smoke? No [email or web address] Information not available 03/19/2022 Do You Feel Stressed (tense, Restless, Nervous, Or Anxious, Or Unable To Sleep At Night)? [id number] [email or web address] Information not available 03/19/2022 Do You Use Any Illicit Or Recreational Drugs? No [email or web address] Information not available 12/18/2021 Do You Use Sunscreen Routinely? No [email or web address] Information not available 03/19/2022 Has Tobacco Cessation Counseling Been Provided? No [email or web address] Information not available 03/19/2022 Have You Used IV Drugs? No [email or web address] Information not available 03/19/2022 Do You Or Have You Ever Used Any Other Forms Of Tobacco Or Nicotine? No [email or web address] Information not available 03/19/2022 Sex: Unknown Functional Status Question Answer Note LastModified by Organizat ion Details LastModified Time Do you have difficulty walking or climbing stairs? No Information not available 03/19/2022 Are you able to walk? YESWOREST [email or web address] Information not available 03/19/2022 Are you able to care for yourself? Yes [email or web address] Information not available 03/19/2022 Do you have difficulty dressing or bathing? No [email or web address] Information not available 03/19/2022 What is your exercise level? Occasional [email or web address] Information not available 03/19/2022 Mental Status None recorded. Family History Nothing Reported. Medical History Condition Response Allergies (Food, seasonal, environmental ) N Other N Drug/Latex Allergies/Reactions N Blood Transfusion N Breast Cancer N Dermatologic Disorders N Lung Disease N Defects or Inherited Disease N Breast Problem N Gestational Diabetes N Hematologic disorders N Anesthesia Complications N History of STI N Deep Vein Thrombosis N Polycystic ovary syndrome Y Anxiety Disorder N Autoimmune disease N Arthritis N Polyps N Infertility N Acid Reflux (GERD) N History of abnormal pap N Cancer N Varicosities N Stroke N Neurologic/Epilepsy N Endometriosis N High Cholesterol N Fibromyalgia N Headaches N Kidney Disease N Heart Problems N Thyroid Problems N Kidney or Bladder Problems N GI Problems N Eating Disorder N Anemia N Art (IVF or FET) N Psychiatric Illness N Ovarian Cancer N Diabetes N Pulmonary (TB, Asthma) N Hepatitis/Liver Disease N No Past Medical History N Eczema N Urinary Tract Infection N Abuse/Domestic Violence N Asthma N Trauma/Violence N Depression/ depression N Heart Disease N Pre-Eclampsia N Hypertension N Osteoporosis N Thrombophilias N Gynecological History Statement/Question Response Date of LMP On BCP's at Conception? N N Was last menstrual period normal N STIs/STDs N HPV Vaccine N Duration of Flow (days) 4 Current Control Method None Frequency of Cycle (Q days) 33 Sexually Active? Y Age of first menstrual cycle 20 Date of Last Pap Smear 12/18/2021 Sexual Problems? N LMP Approximate N Obstetrics History GPAL:G 2 P 1 0 1 1 Type Value Full Term 1 Spontaneous 1 Living 1 Total 2 Past Encounters Encounter ID Performer Location Encounter Start Date Encounter Closed Date Diagnosis/Indication Diagnosis SNOMED-CT Code Diagnosis ICD10 Code Diagnosis Note [id number] Silvia Odonnell MD [facility] [address] [address] 12/18/2021 16:51:59 12/25/2021 15:19:40 test positive [id number] Z32.01 Polycystic ovary syndrome 316433993 E28.2 Prediabetes 701478694 R7 3.03 Venereal d isease screening [id number] Z11.3 Screening for malignant neoplasm of cervix 808120748 Z12.4 Family his tory of antiphospholipid syndrome [id number] Z83.2 [id number] [facility] [address],[place] [address] 12/18/2021 16:54:52 12/19/2021 16:13:46 screening [id number] Z36.87 [id number] Kate Jolley [facility] [address],[place] [address] 03/19/2022 09:30:36 03/19/2022 12:42:48 Subchorionic hematoma [id number] O41.8X99 [id number] Mariella Camacho [facility] [address],[place] [address] 03/19/2022 09:31:54 03/20/2022 16:41:57 test positive 473266010 Z32.01 Risk factors addressed: Tobacco Cessation, Safe Sexual Practices, environmen malou, work hazards, travel restrictio ns, seat belt use.Eat a health well balanced diet, avoid alcohol, tobacco, and street drugs.Enga ge in daily low impact exercise, avoid temperatur e extremes, and cat, rodent, and bird feces.Avoi d travel to areas where zika virus is a concern.Of fered cf/sma/nip t. Handouts given and discussed with patient. Planning on doing screenings . Would like screening at 10 weeks.Chil dbirth classes recommende d.New OB sheet given.If previous , counseling .Pt verbalizes that she understand s the importance of above instructio ns.All questions were answered.P atient reminded to have annual well woman examinatio n and address [facility] . [id number] [facility] [address],[place] [address] 04/09/2022 09:32:34 04/09/2022 14:16:25 screening [id number] Z36.82 [id number] Matthew Samano MD [facility] [address],[place] [address] 04/09/2022 09:39:17 04/09/2022 12:51:37 Routine care [id number] Z34.81 [id number] [facility] [address],[place] [address] 05/09/2022 11:07:11 05/09/2022 11:41:26 Routine care [id number] Z34.92 [id number] Deanna Romero [facility] [address],[place] [address] 06/07/2022 09:51:33 06/07/2022 11:15:52 screening for malformation 068901593 Z36.3 [id number] Erika Lopes [facility] [address],[place] [address] 06/08/2022 09:27:24 06/08/2022 10:37:31 [id number] Jeimy Guzman [facility] [address],[place] [address] 07/06/2022 16:36:06 07/06/2022 17:10:43 Routine care [id number] Z34.92 [id number] Erika Lopes [facility] [address],[place] [address] 08/03/2022 09:46:48 08/03/2022 10:24:43 Routine care 668167510 Z34.92 [id number] Erika Lopes [facility] [address] [place] [address] 08/17/2022 16:27:36 08/17/2022 16:56:41 Routine care [id number] Z34.92 [id number] Erika Lopes [facility] [address] [place] [address] 08/31/2022 13:53:05 08/31/2022 14:44:48 Routine care 941832548 Z34.92 Nausea and vomiting 1693 2000 R11.2 [id number] Rylee Sherman [facility] [address],[place] [address] 09/14/2022 09:59:18 09/14/2022 10:54:05 Chronic hypertension complicating AND/OR reason for care during [id number] O16.9 O26.843 Z3A.34 [id number] Erika Lopes [facility] [address],[place] [address] 09/14/2022 09:59:35 09/14/2022 14:41:12 Routine care [id number] Z34.92 [id number] Erika Lopes [facility] [address],[place] [address] 09/21/2022 10:26:51 09/21/2022 16:10:29 Routine care [id number] Z34.92 [id number] Erika Lopes [facility] [address],[place] [address] 09/28/2022 10:30:31 09/28/2022 11:32:02 Routine care 810319336 Z34.92 [id number] [facility] [address],[place] [address] 09/28/2022 11:39:34 09/28/2022 12:30:21 Gestational diabetes mellitus 63778531 O24.419 [id number] Zenobia [facility] [address],[place] [address] 09/28/2022 12:20:00 09/28/2022 12:38:52 Gestational diabetes mellitus 66835223 O24.419 O28.8 Z3A.36 [id number] Jessie Gar [facility] [address],[place] [address] 10/02/2022 10:58:48 10/02/2022 12:00:08 Gestational diabetes mellitus class A1 45111302 O24.410 O13.9 Z3A.37 Pt here for BP check. BP 136/85. SP informed. Per SP, pt instructed to complete 24 hr urine collection and repeat BP check tomorrow. Pt instructed on 24 hour urine collection and provided with supplies. Pt will come to the office for BP check tomorrow prior to turning 24 hour urine collection in at [place] and completing her pre-admit appt. Pt will continue to monitor symptoms and call if she experience s a change. Pt will call this afternoon with her BS log. Jessie dorsey, RN [id number] Jeimy Guzman [facility] [address],[place] [address] 11/09/2022 12:14:15 11/09/2022 14:14:51 care [id number] Z39.2 Polycystic ovary syndrome [id number] E28.2 Health Concerns Section Related Observation LastModified by Organization Detai ls LastModified Time None Recorded Concern Status LastModified by Organization Details LastModified Time None Recorded Advance Directives Directive N: Payers Encounter Date Sequence Insurance Name Policy Number Policy Falk Covered Member ID Falk Member ID Guarantor Name 09/28/2022 1 [place] [id number] Stephen L Horne [id number] 09/28/2022 1 [place] [id number] Stephen L Horne [id number] 09/28/2022 1 [place] [id number] Stephen Tsering Horne [id number] 10/02/2022 1 [place] [id number] Stephen L Horne [id number] 11/09/2022 1 [place] [id number] Stephen Tsering Horne [id number] [employer] Notes Date Note Type Note Provider Name and Address Organization Details Recorded Time 11/09/2022 text/html VisitReported bypatient.Quality:NS VD; 2 1/2 minute shoulder dystocia Context:complication s of : GDM; complications of labor: ; complications: none; feeding choice: bottle; good support from partner/family; resumed menstrual bleeding no Associated Symptoms:no abnormal bleeding; no vaginal discharge; no pelvic pain; laceration well healed; no constipation; no fecal incontinence; no dysuria; no urinary incontinence; normal mood Contraception Plan:declines contraceptionNotes:w ould like to restart spironolactone for pcos, declines bc Jeimy Guzman [facility] 11/09/2022 13:59:10 OBGyn Episode Ob Episode Information Episode Created Date Number of Fetuses Patient Bloodtype Patient rh Status Prepregnancy Weight lbs Domestic Partner Domestic Partner Phone Father Name Instructor Physical Status 04/09/20 22 1 O Positive 180 CLOSED Fetus Data First Name Last Name Admitted to NICU Weight (g) Sex Living Outcome Pediatric Complications Fetus ID Race Codes Race Delivery Type Nyx 3798.83 3 M true Full Term CPAP neopuff 91595 Vaginal Delivery Problems Problem Notes GDM (09/28/22)hr gtt borderli ne 08/17 pt checking bs [id number] Failed rpt 1hr gtt - per SP checking BS Problem Name Start Date End Date Resolution Snomed Code Not e Anemia 08/06/2022 [id number] 1 tab slo wfe daily Increased blood pressure 65387 005 ASA Polycystic ovary syndrome 12/25/2021 [id number] Gestational diabetes mellitus [id number] Charan Calculation Initial Charan Date Initial Exam Date Initial Exam Provider Initial Ultrasound Date Last Menstrual Period Date Ultra Sound Weeks Gestation 10/22/2022 04/09/2022 03/19/2022 9 Eighteen To Twenty Week Charan Update Ultra Sound Date Fundal Height At Umbil Quickening Date Ultra Sound Latest Weeks Gestation Final Charan Confirmed By Final Charan Confirmed Date Final Charan Date Ultra Sound Latest Days Gestation 0 [email or web address] 04/09/2022 10/23/19 23 0 Pre- Flowsheet Flowsheet Date 04/09/2022 Duval Score Blood Edema Fundus Height Fundus Units Glucose Ketones Leukocytes Nitrite Labor Signs Protein Cervic Dilation Cervic Effacement Cervic Station 12 Type Weight in lbs Pre/Post Dialysis Refused Weight 183.020919450602 BP Diastolic BP Location Tested BP Systolic BP Type 81 R arm 147 sitting Fetus Heart Rate Present A 165 Fetus Movement Comments Patient is a 26-year-old gra milady 2 para 0010 at 12 weeks gestation who presents for initial care. She is not vaccinated for COVID but has been exposed tested positive. Has a history of polycystic ovarian syndrome was being treated for infertility and spontaneous became after her miscarriage. Miscarriage was spontaneous also. She was given recommendations on flu vaccine and Tdap. Has some elevated blood pressures. Repeat blood pressure today was normal. To observe for chronic hypertension. To begin routine care. Flowsheet Date 05/09/2022 Duval Score Blood Edema Fundus Height Fundus Units Glucose Ketones Leukocytes Nitrite Labor Signs Protein Cervic Dilation Cervic Effacement Cervic Station neg none none trace Type Weight in lbs Pre/Post Dialysis Refused Weight 189.691740391528 BP Diastolic BP Location Tested BP Systolic BP Type 79 124 Fetus Heart Rate Present A 147 Present Fetus Movement A No Comments draw pn labs today, tylenol or caffeine ok for headaches, worried about since last miscarriage, discussed precautions, will plan anatomy scan in 4weeks, bp today within normal range Flowsheet Date 06/07/2022 Duval Score Blood Edema Fundus Height Fundus Units Glucose Ketones Leukocytes Nitrite Labor Signs Protein Cervic Dilation Cervic Effacement Cervic Station Type Weight in lbs Pre/Post Dialysis Refused BP Diastolic BP Location Tested BP Systolic BP Type Fetus Heart Rate Present Fetus Movement Comments Flowsheet Date 06/08/2022 Duval Score Blood Edema Fundus Height Fundus Units Glucose Ketones Leukocytes Nitrite Labor Signs Protein Cervic Dilation Cervic Effacement Cervic Station neg none none trace Type Weight in lbs Pre/Post Dialysis Refused Weight 193.69064302751 BP Diastolic BP Location Tested BP Systolic BP Type 89 128 Fetus Heart Rate Present A 143 Present Fetus Movement A Yes Comments patient is having some wrist pain. discussed ice/braces to help, doing well, reviewed complete anatomy done yesterday. boy! doing well, draw prenatals today f/u 4 weeks Flowsheet Date 07/06/2022 Duval Score Blood Edema Fundus Height Fundus Units Glucose Ketones Leukocytes Nitrite Labor Signs Protein Cervic Dilation Cervic Effacement Cervic Station neg none none trace Type Weight in lbs Pre/Post Dialysis Refused Weight 201.249952374013 BP Diastolic BP Location Tested BP Systolic BP Type 85 123 Fetus Heart Rate Present A 146 Present Fetus Movement A Yes Comments plan 28 week GCT, doing well , precautions reviewed Flowsheet Date 08/03/2022 Duval Score Blood Edema Fundus Height Fundus Units Glucose Ketones Leukocytes Nitrite Labor Signs Protein Cervic Dilation Cervic Effacement Cervic Station neg none 29 none trace Type Weight in lbs Pre/Post Dialysis Refused Weight 205.966091344444 BP Diastolic BP Location Tested BP Systolic BP Type 78 117 Fetus Heart Rate Present A 145 Fetus Movement A Yes Comments GCT today, doing well, worri ed about weight loss after baby, not planning on breast feeding, gave dr samano/vj info, education done, ok for tdap f/u 2 weeks Flowsheet Date 08/17/2022 Duval Score Blood Edema Fundus Height Fundus Units Glucose Ketones Leukocytes Nitrite Labor Signs Protein Cervic Dilation Cervic Effacement Cervic Station neg trace none trace Type Weight in lbs Pre/Post Dialysis Refused Weight 205.300745427382 BP Diastolic BP Location Tested BP Systolic BP Type 84 148 72 130 Fetus Heart Rate Present Fetus Movement A Yes Comments patient is having dizziness in the am, had 1 3 hour elevated, will check bs x 2 weeksdenies soriano, visual changes, epigastric pain, precautions reviewed f/u 2 weeks or sooner if needed Flowsheet Date 08/31/2022 Duval Score Blood Edema Fundus Height Fundus Units Glucose Ketones Leukocytes Nitrite Labor Signs Protein Cervic Dilation Cervic Effacement Cervic Station neg none 34 none trace Type Weight in lbs Pre/Post Dialysis Refused Weight 207.302734806275 BP Diastolic BP Location Tested BP Systolic BP Type 78 120 Fetus Heart Rate Present A 150 Fetus Movement A Yes Comments patient states that having s ome anxiety and nausea. declines meds at this time, going to start working from home. didnt check bs couldn't figure out machine, but feels great now that on iron, so no checking bs for now, zofran for nausea, precautions reviewed. plans tdap this week, call for preadmit Flowsheet Date 09/14/2022 Duval Score Blood Edema Fundus Height Fundus Units Glucose Ketones Leukocytes Nitrite Labor Signs Protein Cervic Dilation Cervic Effacement Cervic Station Type Weight in lbs Pre/Post Dialysis Refused BP Diastolic BP Location Tested BP Systolic BP Type Fetus Heart Rate Present Fetus Movement Comments Flowsheet Date 09/14/2022 Duval Score Blood Edema Fundus Height Fundus Units Glucose Ketones Leukocytes Nitrite Labor Signs Protein Cervic Dilation Cervic Effacement Cervic Station neg none none trace Type Weight in lbs Pre/Post Dialysis Refused Weight 210.642054821062 BP Diastolic BP Location Tested BP Systolic BP Type 86 134 Fetus Heart Rate Present Fetus Movement A Yes Comments patient states that having s ome swelling. efw 97% AC >99% plan rpt 1 hour gct on saturday, plan to discuss method of delivery next visit, reviewed risks and benefits, +FM, precautions reviewed, call for preadmit Flowsheet Date 09/21/2022 Duval Score Blood Edema Fundus Height Fundus Units Glucose Ketones Leukocytes Nitrite Labor Signs Protein Cervic Dilation Cervic Effacement Cervic Station neg none 37 none trace Type Weight in lbs Pre/Post Dialysis Refused Weight 211.826462245940 BP Diastolic BP Location Tested BP Systolic BP Type 83 123 Fetus Heart Rate Present A 150 Fetus Movement A Yes Comments LGA will pplan us earlier in the week on 10/08, discussed options, will await final growth, doing bs prior to meals, fastings ok will switch to 1 hr after meals, gbs today, f/u one week Flowsheet Date 09/28/2022 Duval Score Blood Edema Fundus Height Fundus Units Glucose Ketones Leukocytes Nitrite Labor Signs Protein Cervic Dilation Cervic Effacement Cervic Station 2+ Type Weight in lbs Pre/Post Dialysis Refused Weight 215.750855633946 BP Diastolic BP Location Tested BP Systolic BP Type 82 146 Fetus Heart Rate Present Fetus Movement Comments soriano off and on, denies curren t soriano, denies visual changes, epigastric pain, check labs plan bp check on saturday. ruled in GDM, diet teaching done my SP, NST today, precautions reviewed. cervix FT/th/soft Flowsheet Date 09/28/2022 Duval Score Blood Edema Fundus Height Fundus Units Glucose Ketones Leukocytes Nitrite Labor Signs Protein Cervic Dilation Cervic Effacement Cervic Station Type Weight in lbs Pre/Post Dialysis Refused BP Diastolic BP Location Tested BP Systolic BP Type Fetus Heart Rate Present Fetus Movement Comments Flowsheet Date 09/28/2022 Duval Score Blood Edema Fundus Height Fundus Units Glucose Ketones Leukocytes Nitrite Labor Signs Protein Cervic Dilation Cervic Effacement Cervic Station Type Weight in lbs Pre/Post Dialysis Refused BP Diastolic BP Location Tested BP Systolic BP Type Fetus Heart Rate Present Fetus Movement Comments Flowsheet Date 10/02/2022 Duval Score Blood Edema Fundus Height Fundus Units Glucose Ketones Leukocytes Nitrite Labor Signs Protein Cervic Dilation Cervic Effacement Cervic Station Type Weight in lbs Pre/Post Dialysis Refused BP Diastolic BP Location Tested BP Systolic BP Type Fetus Heart Rate Present Fetus Movement Comments Menstrual History Last Menstrual Date Menses Monthly On Bcp Conception Prior Menses Frequency Hcg Plus Date Menarche Onset Age Genetic Screening And Infection History Question Response Note Mental Retardation/Autism false Patient's Age Will Be 35 Years Or Older At Estim ated Date of Delivery false Thalassemia (Estonian, Nepali, Mediterranean, Or Background): MCV < 80 false Neural Tube Defect (Meningomyelocele, Spina Bifi da, Or Anencephaly) false Congenital Heart Defect false Down Syndrome false Ty-Sachs (eg, Episcopalian, Cajun, Solomon Islander-Barbadian) f alse Miranda Disease false Sickle Cell Disease Or Trait () false Hemophilia Or Other Blood Disorders false Muscular Dystrophy false Cystic Fibrosis false Sunshine's Chorea false Intellectual Disability/Autism false If Yes, Was Person Tested For Fragile X? false Other Inherited Genetic Or Chromosomal Disorder false Maternal Metabolic Disorder (eg, Type 1 Diabetes , PKU) false Patient Or Baby's Father Had A Child With Defects Not Listed Above false Recurrent Loss, Or A Stillbirth false Medications (including Suppl ements, Vitamins, Herbs, OTC Drugs), Illicit/Recreational Drugs, Alcohol false If Yes, Agent(s) And Strength/Dosage false Any Other Genetic History false Live With Someone With TB Or Exposed To TB false Patient Or Partner Has History Of Genital Herpes false Rash Or Viral Illness Since Last Menstrual Perio d false History Of STD, Gonorrhea, Chlamydia, HPV, Syphi lis false Other Infection History false History of HIV false History of Hepatitis false Prior GBS-infected child false Hemoglobinopathy Or Carrier false Other Structural Defect false Recent Travel History Outside of Country false Delivery Information Delivery Date Delivery Type Labor Anesthesia Weeks Gestation Incision Type Labor Labor Length Hrs Delivered By Post Complications Tubal Sterilization Discharge Date Comments 3 Induce d Regional-Ep idural 37.4 false Moses Erika CNM Gbs+, GHTN, GDM, Anemia, LGA Discharge Information Feeding Method Contraceptive Method Maternal HG B and HCT Levels Ob Episode Information Episode Created Date Number of Fetuses Patient Bloodtype Patient rh Status Prepregnancy Weight lbs Domestic Partner Domestic Partner Phone Father Name Instructor Physical Status 08/04/19 23 1 CLOSED Fetus Data First Name Last Name Admitted to NICU Weight (g) Sex Living Outcome Pediatric Complications Fetus ID Race Codes Race Delivery Type , Spontane ous [id number] Charan Calculation Initial Charan Date Initial Exam Date Initial Exam Provider Initial Ultrasound Date Last Menstrual Period Date Ultra Sound Weeks Gestation 0 Eighteen To Twenty Week Charan Update Ultra Sound Date Fundal Height At Umbil Quickening Date Ultra Sound Latest Weeks Gestation Final Charan Confirmed By Final Charan Confirmed Date Final Charan Date Ultra Sound Latest Days Gestation 0 0 Menstrual History Last Menstrual Date Menses Monthly On Bcp Conception Prior Menses Frequency Hcg Plus Date Menarche Onset Age Delivery Information Delivery Date Delivery Type Labor Anesthesia Weeks Gestation Incision Type Labor Labor Length Hrs Delivered By Post Complications Tubal Sterilization Discharge Date Comments 2 Discharge Information Feeding Method Contraceptive Method Maternal HG B and HCT Levels
--- OUTSIDE RECORDS SUMMARY | 2024-08-07 05:39 | XMS_ITS | Clinical Summary ---
Author Organization [facility] Address [address] [place] [address] Phone Care Team Providers Care Deputy Sheriff K9 Handler Name Role Phone Faby Roberts MD Unavailable Unavail able Dara Rocha APRN, CNP Primary Care P [facility] Allergies No known active allergies Medications Lisdexamfetamine [...] Department Care Team Description 06/24/[facility]24 [facility] [address] [place] [address] Dara Rocha APRN, PRINTING PLATE CLERK Cough; Headache from Last 3 Months Immunizations [...] 020 11:03 AM CDT) No Ayanna Guevara, [facility] Insurance Care Teams Deputy Sheriff K9 Handler Relationship Specialty Start Date End Date Dara Rocha APRN, PRINTING PLATE CLERK [address] [place] [address] PCP - General Advanced Practice Nurse 09/12/21 Faby Roberts MD Obstetrics & Gynecology 07/17/19
--- OUTSIDE RECORDS SUMMARY | 2024-08-07 05:39 | XMS_ITS | Data Portability ---
Author Organization [facility] Address [address] [facility] [place] [address] Care Team Providers Care Data Security Administrator Name Role Phone ADAMS HAGERIA Classroom Monitor BERNY GARCIA Primary Care Provider [phone] Assessment No assessment recorded. Plan of Treatment Reminders Order Date Submit Date Provider Last Modified By Organization Details Last Modified Time Details Appointments None recorded. Lab cytology report, thin prep, smear or scraping, cervical or vaginal 2020 [facility], [address] [place] [address], [address], 14:36:21 dhea-sulf ate, serum 2020 021 [facility], [address] [place] [address], [place], [address], 12:28:52 testoster one, free, serum 2020 [facility], [address] [place] [address], [place], [address], 12:28:50 TSH + free T4, serum 2020 021 [facility], [address] [place] [address] 2, [place], [address], 12:28:52 prolactin , serum 2020 021 [facility], [address] [place] [address], [place], [address], 1 12:28:49 BMP, serum or plasma 2020 021 [facility], [address], [place], [address], 1 12:28:52 HbA1c (hemoglob in A1c), blood 2020 021 [facility], [address] [facility], [place], [address], 1 12:28:52 FSH (follicle -stimulat ing hormone), serum 2020 021 [facility], [address] [facility] [address], [place], [address], 1 12:28:50 urinalysi s, dipstick 2018 019 [email or web address] In-Office Order, Internal Use Only DO Not Attach Compendium DO Not Attach Compendium, Do Not Delete/merge, [id number] 9 12:35:49 HIV 1+2 AB + HIV 1 p24 Ag, qualitati ve immunoass ay, serum 2018 019 [facility], [address] [facility] [address], [place], [address], 9 06:05:24 RPR (rapid plasma reagin), serum 2018 019 [facility], [address] [facility], [place], [address], 9 06:05:23 HBsAg (hepatiti s B surface Ag), EIA, serum 2018 019 [facility], [address] [facility], [place], [address], 9 06:05:25 hepatitis C Ab, signal-to -cutoff, serum or plasma 2018 019 [facility], [address] [facility] [address], [place], [address], 9 06:05:25 bacterial vaginosis + vaginitis panel, vaginal 2018 019 [facility], [address] [facility] [address], [place], [address], 9 06:05:23 Referral None recorded. Procedures None recorded. Surgeries None recorded. Imaging None recorded. Medication Orders metformin 500 mg tablet 2020 021 [facility] #[id number], [address] [place], [address], 1 12:28:38 spironola ctone 100 mg tablet 2020 021 [id number] [address] [place], [address], 1 12:28:36 Apri 0.15 mg-0.03 mg tablet 2020 021 [id number] [address] [place], [address], 1 12:28:37 Sprintec (28) 0.25 mg-0.035 mg tablet 2019 021 [id number] [facility]/Pharmacy #[id number], [address] [place], [address], 1 09:33:36 spironola ctone 100 mg tablet 2019 020 [facility]/Pharmacy #[id number], [address] [place] [address], [address], 1 12:14:37 metformin 500 mg tablet 2019 020 [facility]Pharmacy #[id number], [address] [place], [address], 1 12:14:27 ciproflox acin 250 mg tablet 2018 [id number] [address] [place], [address], 0 13:58:40 Patient TargetsNo targets recorded. Patient Instructions Encounter Date Encounter Id Patient Instructions Last Modified By Organization Details Last Modified Time 10/08/2018 [id number] Urinary Tract Infection (UTI) in Women: Care Instructions [email or web address] Not available 10/08/2018 12:01:19 11/28/2020 [id number] When You Want to Lose Weight: Care Instructions [email or web address] Not available 11/28/2020 14:26:14 Reason for Referral None Reported. Results Created Date Observation Date Name Description Value Unit Range Abnormal Flag Note LastModifiedBy Organization Detail LastModifiedTime 08/21/19 19 08/20/2018 pregn terri test, urine HCG negati ve Not Available In-Office Order Internal Use Only DO Not Attach Compendium DO Not Attach Compendium, Do Not Delete/merge, [id number] 08/20/2018 12:13:39 09/05/19 19 09/06/2018 bacte rial vagin osis + vagin itis panel , vagin al trich vag by ANITHA Negati ve negati ve Not Available [facility] ([facility]) [address] [place], [address], 09/08/2018 06:05:23 09/05/1909/06/2018 bacte rial vagin osis + vagin itis panel , vagin al chlamydia trachomatis, ANITHA Negati ve negati ve Not Available [facility] ([facility]) [address] [place], [address], 09/08/2018 06:05:23 09/05/19 19 09/06/2018 bacte rial vagin osis + vagin itis panel , vagin al neisseria gonorrhoeae, ANITHA Negati ve negati ve Not Available [facility] ([facility]) [address] [facility], [place], [address], 09/08/2018 06:05:23 09/05/1909/07/2018 bacte rial vagin osis + vagin itis panel , vagin al atopobium vaginae Low - 0 score Not Available [facility] ([facility]) [address] [facility], [place], [address], 09/08/2018 06:05:23 09/05/1909/07/2018 bacte rial vagin osis + vagin itis panel , vagin al bvab 2 Low - 0 score Not Available [facility] ([facility]) [address] [facility], [place], [address], 09/08/2018 06:05:23 09/05/19 19 09/07/2018 bacte rial vagin osis + vagin itis panel , vagin al megasphaera 1 Low - 0 score Calcu late total score by lele bautista the 3 indiv idual bacte rial vagin osis (BV) marke r score s toget her. Total score is inter prete d as follo ws: Total score 0-1: Indic ates the absen ce of BV. Total score 2: Indet ermin ate for BV. Addit ional clini taj data shoul d be evalu ated to estab thien a diagn osis. Total score 3-6: Indic ates the prese nce of BV. This test was devel oped and its perfo rmanc e casey cteri stics deter mined by [facility]. It has not been clear ed or appro kacie by the Food and Drug Admin istra tion. The FDA has deter mined that such clear ance or appro zane is not neces andrzej. Not Available [facility] ([facility]) [address] [facility], [place], [address], 09/08/2018 06:05:23 09/05/1909/07/2018 bacte rial vagin osis + vagin itis panel , vagin al segundo albicans, ANITHA Negati ve negati ve Not Available [facility] ([facility]) [address] [place], [address], 09/08/2018 06:05:23 09/05/19 19 09/07/2018 bacte rial vagin osis + vagin itis panel , vagin al segundo glabrata, ANITHA Negati ve negati ve This test was devel oped and its perfo rmanc e casey cteri stics deter mined by [facility]. It has not been clear ed or appro kacie by the Food and Drug Admin istra tion. The FDA has deter mined that such clear ance or appro zane is not neces andrzej. Not Available [facility] ([facility]) [address] [facility], [place], [address], 09/08/2018 06:05:23 09/05/19 19 09/05/2018 RPR (rapi d plasm a reagi n), serum RPR Non Reacti ve non reacti ve Not Available [facility] ([facility]) [address] [place], [address], 09/08/2018 06:05:23 09/05/1909/05/2018 HIV 1+2 AB + HIV 1 p24 Ag, quali tativ e immun oassa y, serum HIV screen 4TH generation wrfx Non Reacti ve non reacti ve Not Available [facility] ([facility]) [address] [place], [address], 09/08/2018 06:05:24 09/05/19 19 09/05/2018 hepat itis C Ab, signa l-to- cutof f, serum or plasm a HCV Ab <0.1 s/co_ ratio 0.0-0. 9 Not Available [facility] ([facility]) [address] [place], [address], 09/08/2018 06:05:25 09/05/19 19 09/05/2018 hepat itis C Ab, signa l-to- cutof f, serum or plasm a comment: Commen t Non react margarita HCV antib cici scree n is consi stent with no HCV infec tion, unles s recen t infec tion is suspe cted or other evide nce exist s to indic ate HCV infec tion. Not Available [facility] ([facility]) [address] [facility], [place], [address], 09/08/2018 06:05:25 09/05/1909/05/2018 HBsAg (hepa titis B surfa ce Ag), EIA, serum HBsAg screen Negati ve negati ve Not Available [facility] ([facility]) [address] [facility], [place], [address], 09/08/2018 06:05:25 10/09/19 19 10/08/2018 urina lysis , dipst ick Leukocytes Trace Not Available In-Offi ce Order Internal Use Only DO Not Attach Compendium DO Not Attach Compendium, Do Not Delete/merge, 10/08/2018 11:44:31 10/09/1910/08/2018 urina lysis , dipst ick Nitrite positi ve Not Available In-Office Order Internal Use Only DO Not Attach Compendium DO Not Attach Compendium, Do Not Delete/merge, 10/08/2018 11:44:31 10/09/1910/08/2018 urina lysis , dipst ick Urobilinogen .2 Not Available In-Of fice Order Internal Use Only DO Not Attach Compendium DO Not Attach Compendium, Do Not Delete/merge, 10/08/2018 11:44:31 10/09/1910/08/2018 urina lysis , dipst ick Protein Trace Not Available In-Office Order Internal Use Only DO Not Attach Compendium DO Not Attach Compendium, Do Not Delete/merge, 10/08/2018 11:44:31 10/09/1910/08/2018 urina lysis , dipst ick pH 6.0 Not Available In-Office Order Internal Use Only DO Not Attach Compendium DO Not Attach Compendium, Do Not Delete/merge, 10/08/2018 11:44:31 10/09/1910/08/2018 urina lysis , dipst ick Blood Negati ve Not Available In-Office Order Internal Use Only DO Not Attach Compendium DO Not Attach Compendium, Do Not Delete/merge, 10/08/2018 11:44:31 10/09/1910/08/2018 urina lysis , dipst ick Specific Kouts 1.020 Not Available In-Off ice Order Internal Use Only DO Not Attach Compendium DO Not Attach Compendium, Do Not Delete/merge, 10/08/2018 11:44:31 10/09/1910/08/2018 urina lysis , dipst ick Ketone Negati ve Not Available In-Office Order Internal Use Only DO Not Attach Compendium DO Not Attach Compendium, Do Not Delete/merge, 10/08/2018 11:44:31 10/09/1910/08/2018 urina lysis , dipst ick Bilirubin Negati ve Not Available In-Office Order Internal Use Only DO Not Attach Compendium DO Not Attach Compendium, Do Not Delete/merge, 10/08/2018 11:44:31 10/09/1910/08/2018 urina lysis , dipst ick Glucose Negati ve Not Available In-Office Order Internal Use Only DO Not Attach Compendium DO Not Attach Compendium, Do Not Delete/merge, 10/08/2018 11:44:31 10/09/1910/08/2018 urina lysis , dipst ick Appearance Slight ly Cloudy Not Available In-Office Order Internal Use Only DO Not Attach Compendium DO Not Attach Compendium, Do Not Delete/merge, 10/08/2018 11:44:31 10/09/1910/08/2018 urina lysis , dipst ick Color Dark Yellow Not Available In-Office Order Internal Use Only DO Not Attach Compendium DO Not Attach Compendium, Do Not Delete/merge, 10/08/2018 11:44:31 11/29/1911/30/2020 IGP, RFX APTIM A HPV ASCU diagnosis: Commen t NEGAT MARGARITA FOR INTRA EPITH ELIAL LESIO N OR MALIG NELSON . Not Available [facility] ([facility]) [address] [place], [address], 11/30/2020 14:36:21 11/29/1911/30/2020 IGP, RFX APTIM A HPV ASCU specimen adequacy: Glenna t Satis facto ry for evalu ation . Endoc ervic al and/o r squam ous metap lasti c cells (endo cervi taj compo nent) are prese nt. Not Available [facility] ([facility]) [address] [place], [address], 11/30/2020 14:36:21 11/29/1911/30/2020 IGP, RFX APTIM A HPV ASCU clinician provided ICD10: Glenna terrazas E28.2 Z01.4 19 Not Available [facility] ([facility]) [address] [place], [address], 11/30/2020 14:36:21 11/29/19 21 11/30/2020 IGP, RFX APTIM A HPV ASCU performed by: Oralia Devine (ASCP ) Not Available [facility] ([facility]) [address] [place], [address], 11/30/2020 14:36:21 11/29/1911/30/2020 IGP, RFX APTIM A HPV ASCU . . Not Available [facility] ([facility]) [address] [place], [address], 11/30/2020 14:36:21 11/29/1911/30/2020 IGP, RFX APTIM A HPV ASCU note: Glenna t The Pap smear is a scree emani test desig jackson to aid in the detec tion of hema ligna nt and malig nant condi tions of the uteri ne cervi x. It is not a diagn ostic proce dure and shoul d not be used as the sole means of detec ting cervi taj cance r. Both false -posi tive and false -nega tive repor ts do occur . Not Available [facility] ([facility]) [address] [facility], [place], [address], 11/30/2020 14:36:21 11/29/19 21 11/30/2020 IGP, RFX APTIM A HPV ASCU test methodology: Commen t This liqui d based ThinP rep(R ) pap test was macario paz with the use of an image guide tito systmary m. Not Available [facility] ([facility]) [address] [facility], [place], [address], 11/30/2020 14:36:21 11/29/1911/30/2020 IGP, RFX APTIM A HPV ASCU . Commen t The HPV DNA refle x crite asif were not met with this speci men resul t there fore, no HPV testi ng was perfo rmed. Not Available [facility] ([facility]) [address] [facility], [place], [address], 11/30/2020 14:36:21 Result Notes None recorded. Problems Name Problem SNOMED Code Status Onset Date Resolution Date Notes Provider Name and Address Organization Details Recorded Time Amenorrhea 28816477 Active Sravanthi granger, [place] - [facility] 6 11:19:44 Obesity 020280053 Active 2017 Kassandra Pratt APN, MARLENE-C Attn: Tommy g,[address] [facility], [place], [address], [facility] - [facility] 8 15:19:51 Prehypertensio n 034583566 Active 2017 Kassandra Pratt APN, FNP-C Attn: Tommy g,[address] [facility], [place], [address], [facility] - [facility] 8 15:19:52 Mixed anxiety and depressive disorder 549769319 Active 2017 Kassandra Pratt APN, ASSISTANT BOOKKEEPER-C Attn: Tommy bautista,[address] [facility], [place], [address] [place] - [facility] 8 15:19:53 Urinary tract infectious disease 27768499 Active Sravanthi Richert [place], [place] - [facility] 6 11:19:44 Pruritus of vagina 42959096 Active Sravnathi [place]hert [place] [facility] 6 11:19:44 Fever 360123138 Active Sravanthi [place]her[place] [facility] 6 11:19:44 Viral myalgia 420758974 Active Sravanthi [place]her[place] [facility] 6 11:19:44 Bacterial vaginosis 915674839 Active Sravanthi [place]her[place] [facility] 6 11:19:44 Acne 83769650 Active Sravanthi [place] [facility] 6 11:19:44 Verruca plantaris 94221872 Active Sravanthi [place]hert [place] [facility] 6 11:19:44 Irregular periods 44301435 Active Sravanthi [place]hert [place] [facility] 6 12:39:12 Problem Notes None recorded. Procedures Surgical History Date Name Laterality Status Provider Name and Address Organization Details Recorded Time 09/06/2015 Date of Last Pap Smear completed Sravanthi Kavinert [place] - [facility] 09/06/2015 11:19:44 Imaging Results None recorded. Procedure Notes None recorded. Medical Equipment None Reported. Allergies No known drug allergies Medications Name Sig Start Date Stop Date Status Note LastModified by Organization Details LastModified Time spironolact one 100 mg tabs 01/31 completed Not Available Not Available Not Available sprintec 28 tab 28 day 01/31 completed Not Available Not Available Not Available fluoxetine hydrochlori de 10 mg caps 11/28 completed Not Available Not Available Not Available metformin hydrochlori de 1000 mg tabs 11/28 completed Not Available Not Available Not Available ciprofloxac in hydrochlori de 250 mg tabs 01/31 completed Not Available Not Available Not Available medroxyprog esterone 10 mg tablet 08/20 completed Not Available Not Available Not Available metformin 500 mg tablet TAKE 1 TABLET BY MOUTH EVERY DAY active Not Available Not Available No t Available Apri 0.15 mg-0.03 mg tablet TAKE 1 TABLET BY MOUTH EVERY DAY active Not Available Not Available No t Available Loestrin Fe 05/25 (28-Day) 1 mg-20 mcg (21)/75 mg (7) tablet Take 1 tablet every day by oral route. 2014 active Not Available Not Available Not Avai lable hydrocodone 5 mg-acetamin ophen 325 mg tablet 08/25 completed Not Available Not Available Not Available tretinoin 0.025 % topical cream APPLY TO THE AFFECTED AREA(S) BY TOPICAL ROUTE ONCE DAILY AT BEDTIME 08/25 completed Not Available Not Available Not Available spironolact one 100 mg tablet TAKE 1 TABLET BY MOUTH TWICE A DAY active Not Available Not Available No t Available metronidazo le 500 mg tablet Take 1 tablet twice a day by oral route after meals for 7 days. 08/25 completed Not Available Not Available Not Available ciprofloxac in 250 mg tablet Take 1 tablet every 12 hours by oral route for 3 days. 01/31 completed Not Available Not Available Not Available ciprofloxac in 500 mg tablet TAKE 1 TABLET BY MOUTH TWICE A DAY FOR 7 DAYS 11/28 completed Not Available Not Available Not Available sulfamethox azole 800 mg-trimetho prim 160 mg tablet TAKE 1 TABLET BY MOUTH TWICE A DAY FOR 3 DAYS 11/28 completed Not Available Not Available Not Available doxycycline monohydrate 100 mg tablet 08/25 completed Not Available Not Available Not Available metformin 1,000 mg tablet Take 1 tablet twice a day by oral route. 01/31 completed Not Available Not Available Not Available letrozole 2.5 mg tablet 08/20 completed Not Available Not Available Not Available doxycycline hyclate 100 mg tablet Take 1 tablet twice a day by oral route. 08/25 completed acne Not Available Not Available Not Available Sprintec (28) 0.25 mg-0.035 mg tablet TAKE 1 TABLET BY MOUTH EVERY DAY active Not Available Not Available No t Available nitrofurant oin monohydrate /macrocryst als 100 mg capsule Take 1 capsule twice a day by oral route for 7 days. 08/25 completed Not Available Not Available Not Available tretinoin 0.05 % topical gel APPLY TO THE AFFECTED AREA(S) BY TOPICAL ROUTE ONCE DAILY AT BEDTIME 02/10 completed not cover ed. Not Available Not Available Not Available Vitals Date Recorded Body height Body mass index (BMI) Body weight Systolic blood pressure Diastolic blood pressure Provider Name and Address Organization Details Last Updated DateTime 09/04/2018 157.48 cm 31.9 kg/m2 17440.15 g 120 mm[Hg] 90 mm[Hg] Mily Lott [facility] 9 12:05:31 Date Recorded Body height Body mass index (BMI) Body weight Systolic blood pressure Diastolic blood pressure Provider Name and Address Organization Details Last Updated DateTime 09/15/2018 157.48 cm 31.8 kg/m2 10043.71 g 138 mm[Hg] 92 mm[Hg] Mily Lott [facility] 9 15:48:48 Date Recorded Body height Body mass index (BMI) Body weight Systolic blood pressure Diastolic blood pressure Provider Name and Address Organization Details Last Updated DateTime 10/08/2018 157.48 cm 31.5 kg/m2 34539.89 g 120 mm[Hg] 78 mm[Hg] Bravo Uribe RN [facility] 9 11:39:35 Date Recorded Body height Body mass index (BMI) Body weight Systolic blood pressure Diastolic blood pressure Provider Name and Address Organization Details Last Updated DateTime 11/28/2020 157.48 cm 32.3 kg/m2 52814.41 g 120 mm[Hg] 76 mm[Hg] Mily Lott MA [facility] 1 12:13:48 Social History Question Answer Notes LastModified by Organizat ion Details LastModified Time Tobacco Smoking Status Former Smoker quit 2016 Mily granger [facility] 08/14/2017 12:19:15 What Is Your Level Of Alcohol Consumption? Occasional Information not available 06/01/2014 Is Blood Transfusion Acceptable In An Emergency? Yes credelicia Information not available 08/14/2017 What Is Your Level Of Caffeine Consumption? Occasional Coffee Information not available 08/26/2015 How Much Tobacco Do You Chew? None Information not available 08/26/2015 In The 14 Days Before Symptom Onset, Have You Had Close Contact With A Laboratory-confir med COVID-19 While That Case Was Ill? No Information not available 11/28/2020 In The 14 Days Before Symptom Onset, Have You Had Close Contact With A Person Who Is Under Investigation For COVID-19 While That Person Was Ill? No Information not available 11/28/2020 Have You Been To An Area Known To Be High Risk For COVID-19? No Information not available 11/28/2020 Are You Currently Employed? Yes Information not available 08/14/2017 What Type Of Diet Are You Following? REGULAR Information not available 08/20/2018 Which Illicit Or Recreational Drugs Have You Used? Denies Information not available 08/14/2017 Do You Or Have You Ever Used E-cigarettes Or Vape? Current User Of Electronic Cigarettes Once A Month Information not available 11/28/2020 Education 12 Some College Information not available 03/11/2018 What Is The Highest Grade Or Level Of School You Have Completed Or The Highest Degree You Have Received? 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 With Others Information not available 08/14/2017 Marital Status Single Informatio n not available 03/11/2018 What Was The Date Of Your Most Recent Tobacco Screening? 11/28/2020 Information not available 11/28/2020 How Many Children Do You Have? 0 [email or web address] Information not available 04/21/2014 Performs Monthly Self-breast Exam? No Information no t available 08/14/2017 Do You Use Protection During Sex? No Information not available 08/14/2017 What Is Your Relationship Status? Single Engaged Information not available 02/01/2020 Do You Use Your Seat Belt Or Car Seat Routinely? Yes Information not available 11/28/2020 Seat Belts Used Routinely Yes Information not available 06/01/2014 Are You Sexually Active? Yes [email or web address] Information not available 04/21/2014 At What Age Did You Start Smoking Tobacco? 14 Information not available 08/14/2017 Do You Or Have You Ever Used Smokeless Tobacco? Never Used Smokeless Tobacco Information not available 02/01/2020 How Much Tobacco Do You Smoke? No Information not available 08/14/2017 General Stress Level Medium Information not available 02/01/2020 Do You Feel Stressed (tense, Restless, Nervous, Or Anxious, Or Unable To Sleep At Night)? [id number] Information not available 11/28/2020 Do You Use Any Illicit Or Recreational Drugs? No Information not available 11/28/2020 Do You Use Sunscreen Routinely? No Information not available 06/01/2014 Has Tobacco Cessation Counseling Been Provided? Yes Information not available 11/28/2020 On What Date Was Tobacco Cessation Counseling Provided? 11/28/2020 Information not available 11/28/2020 How Many Years Have You Smoked Tobacco? 7 Information not available 08/14/2017 Sex: Female Functional Status Question Answer Note LastModified by Organization D etails LastModified Time What is your exercise level? Heavy Information not available 02/01/2020 Mental Status None recorded. Family History Relationship Description Onset Age of this Age Resolved Age Notes LastModified by Organization Details LastModified Time Father Heart disease [email or web address] Not available 2015 11:19:45 Father History of hypertension [email or web address] Not available 07/2015 11:19:45 Father Cerebrovascu lar accident krichert Not available 07/2015 11:19:45 Father Diabetes mellitus [place] Not available 2017 12:18:39 Father Hypercholest erolemia [place] Not available 2017 12:19:01 Paternal Grandfather History of hypertension [place] Not available 03/2018 12:17:56 Paternal Grandfather Diabetes mellitus [place] Not available 2017 12:18:44 Paternal Grandfather Hypercholest erolemia [place] Not available 2017 12:19:01 Maternal Grandfather Heart disease [place] Not available 2017 12:17:38 Maternal Grandfather Cerebrovascu lar accident [place] Not available 03/2018 12:18:07 Maternal Grandmother Malignant tumor of breast 57 [email or web address] Not available 01/05 14:05:16 Maternal Grandmother Assessment using Amyotrophic Lateral Sclerosis Functional Rating Scale Revised 70 [email or web address] Not available 01/05 14:06:09 Medical History Condition Response Heart Problems N Other Y High Blood Pressure N Breast Cancer N Thyroid Problems N Kidney or Bladder Problems Y Lung Disease N Depression Y Blood Clots N GI Problems N Acne Y Breast Problem N Eating Disorder N Anemia N Anesthesia Complications N Headaches/Migraines Y Ovarian Cancer N Diabetes N Anxiety Disorder Y Muscle, Joint, or Bone Problems N Blood Transfusions N Seizures/Epilepsy N Arthritis N Polyps N Infertility N Hyperlipidemia Y Acid Reflux (GERD) N Cancer N Urinary Tract Infection Y Stroke N Abuse/Domestic Violence N Asthma Y Endometriosis N High Cholesterol N Hepatitis N Liver Disease N Heart Disease N Fibromyalgia N Pre-Eclampsia N Hypertension N Osteoporosis N Kidney Disease N Gynecological History Statement/Question Response Abnormal Pap N Flow Moderate STIs/STDs Y HPV Vaccine Y Duration of Flow (days) 5 Age at Menarche 15 Current Control Method None Sexually Active? Y Menses Monthly N Date of Last Pap Smear 09/06/2015 Sexual Problems? N LMP Approximate Desired Control Method BCPs Obstetrics History GPAL:G 2 P 0 0 2 0 Type Value Multiple Births 0 Full Term 0 Induced 0 Spontaneous 2 Premature 0 Living 0 Ectopics 0 Total 2 Past Encounters Encounter ID Performer Location Encounter Start Date Encounter Closed Date Diagnosis/Indication Diagnosis SNOMED-CT Code Diagnosis ICD10 Code Diagnosis Note [id number] Lena Womens ([place] [address]) [address] [facility] [address] [place] [address] 06/01/2014 15:14:12 06/01/2014 17:06:58 Amenorrhea [id number] Venereal d isease screening [id number] Uses oral contraception [id number]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
[2024-08-07] MEDS: ACETAMINOPHEN 500 MG TABLET 1000 MG PO (06:22)
[2024-08-07] MEDS: ONDANSETRON INJ 4 MG/2 ML VIAL IV PUSH (06:22)
[2024-08-07] MEDS: FAMOTIDINE 20 MG/2 ML VIAL IV PUSH (06:23)
--- NOTE | 2024-08-07 06:29 | PM.IMHP ---
H&P: HPI History of Present Illness Date/Time: 08/07/24 06:29 Chief Complaint: Term previous history of shoulder dystocia Narrative: 29-year-old 3 para 1 with history of shoulder dystocia for section electively. Risks benefits reviewed. has been otherwise uncomplicated Review of Systems Review of Systems: All systems reviewed & are unremarkable except as noted in HPI and below PMFSH Past Medical History Medical History Miscarriage UTI (urinary tract infection) Family History Family History Father Blood disorder Grandparent Diabetes mellitus Social History Social History Social History: Caffeine-daily Smoking status: Never smoker Second hand tobacco smoke exposure: No Alcohol intake: former Alcohol use details: former social is 8 months Substance use: never Substance use type: does not use Last use: dec 2023 last vape Lack of Transportation: No Lack of Food: Never True Current Housing: I Have Housing Concerned About Future Housing: No Difficulty Paying Gas/Electric Bills: No Difficulty Paying for Meds: No Currently Unemployed: No Education: Trade/Vocational Certificate Difficulty w/ Childcare or Family Care: No Living arrangements: with family Gender identity (if verbalized by the patient): Female Spiritual care concerns: No Meds Home Medications and Allergies Home Medications ?Medication ?Instructions ?Recorded ?Confirmed ?Type prenat.vits,taj,auo-zmjk-chnso 1 tablet PO DAILY 09/13/22 08/06/24 History Allergies Allergy/AdvReac Type Severity Reaction Status Date / Time No Known Allergies Allergy Verified 08/06/24 13:56 Vital Signs Vital Signs - 24 hr 08/07/24 05:48 08/07/24 05:53 08/07/24 05:58 Pulse Oximetry 99 99 98 08/07/24 06:19 08/07/24 06:24 08/07/24 06:29 Pulse Oximetry 98 98 99 Exam Const: General: cooperative, healthy appearing and comfortable Nutritional Appearance: average body habitus Orientation/consciousness: oriented to person, oriented to place and oriented to time HENMT: Head: normal to inspection Resp: Effort & Inspection: normal respiratory effort Cardio: Rate: regular rate Rhythm: regular rhythm Heart sounds: S1 normal heart sound present and S2 normal heart sound present GI: Inspection: normal to inspection (Gravid soft uterus) Assessment and Plan Assessment and plan (1) Term : Code(s): Z34.90 - Encounter for supervision of normal , unspecified, unspecified trimester Status: Acute Plan Proceed primary low-transverse section
--- NOTE | 2024-08-07 06:31 | WPDHPUPDATE1 ---
History and Physical Update Update Date/Time: 08/07/24 06:31 History and Physical has been reviewed, including an updated exam of the patient. There are NO changes in the patient's condition. Risks, benefits, and alternatives have been discussed and questions answered. Patient agrees to proceed with procedure.
[2024-08-07] MEDS: LACTATED RINGERS 1,000 ML 125 ML IV CONT (06:43)
[2024-08-07 07:15] LABS: HIV 1/2 Ab P24 Ag Result Negative (Negative)
--- NOTE | 2024-08-07 07:22 | P.PNAN_ITS ---
Anes - Initial Pre Proc Eval Procedure: Operation Date: 08/07/24 07:30 Proposed Procedures p Repeat Section - Quincy Martinez MD Date/Time: 08/07/24 07:22 Surgeon: Quincy Martinez MD Pre Op Diagnosis: C/S Patient Data Age: 29 Gender: F Height: 1.63 m Weight: 99 kg Last Vital Signs Pulse 104 H 08/07/24 07:16 BP 133/68 08/07/24 07:16 Pulse Ox 98 08/07/24 07:19 O2 Del Method Room Air 08/07/24 06:35 Allergies Allergy/AdvReac Type Severity Reaction Status Date / Time No Known Allergies Allergy Verified 08/06/24 13:56 Home Medications ?Medication ?Instructions ?Recorded ?Confirmed ?Type prenat.vits,taj,hml-ojlw-sdkap 1 tablet PO DAILY 09/13/22 08/06/24 History hydrocodone 5 mg-acetaminophen 325 1 tablet PO Q4H PRN pain #20 tabs 08/07/24 Rx mg tablet Laboratory Tests 08/07/24 05:53 HIV 1&2 Ab/P24 Ag 4thGn Negative (Negative) Patient hx anesthesia problems: none Family hx anesthesia problems: none Results Review: All pre-operative results and documents have been reviewed as part of the pre- operative evaluation. [facility] Past Medical History Medical History Miscarriage UTI (urinary tract infection) Family History Family History Father Blood disorder Grandparent Diabetes mellitus Social History Social History Social History: Caffeine-daily Smoking status: Never smoker Second hand tobacco smoke exposure: No Alcohol intake: former Alcohol use details: former social is 8 months Substance use: never Substance use type: does not use Last use: dec 2023 last vape Do You Feel Safe in your Home?: No Lack of Transportation: No Lack of Food: Never True Current Housing: I Have Housing Concerned About Future Housing: No Difficulty Paying Gas/Electric Bills: No Difficulty Paying for Meds: No Currently Unemployed: No Education: Bachelor's Degree Difficulty w/ Childcare or Family Care: No Living arrangements: with family Gender identity (if verbalized by the patient): Female Spiritual care concerns: No Anes - Eval Final PreProcedure Day of Procedure 08/07/24 07:22 Patient weight: obese Lungs: normal air movement Airway: Mallampati scale class II Neurological: alert and oriented Last oral intake: >/= 8 hours ASA classification: II Emergent: no Anesthetic plan: proceed Anesthesia type and monitoring: regional spinal and standard monitoring Results Review: All pre-operative results and documents have been reviewed as part of the pre- operative evaluation. Pt in good health overall without HTN or gestational DM. Informed Consent: The patient's anesthetic plan and its attendant risks and benefits were discussed with the patient/family/POA. Questions were solicited and answers provided to the satisfaction of the patient/family/POA.
[2024-08-07] MEDS: ceFAZolin 2 GM/D5W 50 ML 2 GM/50 ML BAG IVPB (07:29)
--- NOTE | 2024-08-07 08:27 | P.PCNOB_ITS ---
OB - Delivery Note Procedure Delivery date: 08/07/24 Pre-op diagnosis: Other (Term with previous shoulder dystocia) Post-op Diagnosis: Same Induction method: None Delivery monitor: External FHT and External Uterine Prior to decision for section, ACOG/SMFM labor guidelines were considered and discussed with the patient and staff. Decision made to proceed with the section.: Yes Procedure Performed: Primary Surgeon: Quincy Martinez MD Anesthesia type: Spinal Description of Procedure/Findings: Patient was prepped draped in normal sterile fashion placed in the supine position. Under excellent spinal anesthetic the abdomen is entered through a Pfannenstiel incision progressive layers fascia. Fascia incised midline carried upper dot fresh bilaterally. Underlying muscles were sharply dissected. Parietal peritoneum male by Sindhu clamps and by sharp dissection. This was carried superiorly and inferiorly dome of the bladder. Bladder blade was placed. A bladder flap was formed. The bladder blade returned. A low transverse incision made head delivered in the MAX position. Anterior posterior shoulder delivered spontaneously. Cord clamped x2 and cut and passed off the table given Apgars made 1minutes 9 [id number]. Cord blood was drawn. Placenta delivered intact manually. Uterus delivered on the abdomen wrapped in moist towel. After assuring no membranes or debris remained in the uterus, the uterus closed continuous running locking 0 Vicryl from lateral edge to lateral edge. The small by 2nd imbricating running locking 0 Vicryl from lateral edge to lateral edge on the left side was a fairly large sinus which and involved a [id number] suture and hemostasis was assured. The ovaries and tubes appeared within normal limits and the uterus returned to the abdomen. The Tinnie term was placed over the raw surface area over the uterine incision. The fascia was then closed with continuous running 0 Vicryl from lateral edge to lateral edge. Irrigation subcutaneous layer and the skin closed with 4 Monocryl and glue. QBL was 655. All sponge, needle, instrument counts were correct. There were no immediate complications Specimen: No Estimated Blood Loss: 655 Drains: No Packing: No Pathology: None sent Complications: No immediate complications Condition: Stable Disposition: PACU [place] Baby Date of : 08/07/24 Time of : 07:59 Gestational Age by Date: 39 gender: Female Weight (pounds): 8 Weight (ounces): 1 presentation: vertex position: Right Occiput Anterior Placenta delivery description: Manual Removal Cord Vessel Description: 3 Vessels score one minute: 8 score five minutes: 9
--- NOTE | 2024-08-07 08:33 | PM.DS ---
DS: Admitting Diagnosis Discharge Date 08/09/2024 Admitting Diagnosis Term DS: Discharge Diagnosis Discharge Diagnosis (1) Term : Code(s): Z34.90 - Encounter for supervision of normal , unspecified, unspecified trimester Status: Acute DS: Summary Hospital Course Reason for hospitalization: Patient was admitted for primary low-transverse section secondary to term and a previous shoulder dystocia Hospital Course: Patient's hospital course unremarkable. She remained afebrile. She was up, voiding without difficulty, eating regular diet, ambulating, and generally without complaints. Time Spent with Patient Time attestation: Total time spent providing and/or coordinating discharge services: Exam Const: General: cooperative, healthy appearing and comfortable Nutritional Appearance: average body habitus Orientation/consciousness: oriented to person, oriented to place and oriented to time HENMT: Head: normal to inspection Resp: Effort & Inspection: normal respiratory effort Cardio: Rate: regular rate Rhythm: regular rhythm Heart sounds: S1 normal heart sound present and S2 normal heart sound present GI: Inspection: normal to inspection and incision (Incision is clean dry and intact) DS: Data Data Completed and Pending Labs on day of discharge: Labs from last 24 hours 08/07/24 05:53 HIV 1&2 Ab/P24 Ag 4thGn Negative Discharge Plan Discharge Attending physician on discharge: Quincy Lopez Discharging Clinician: Quincy Lopez Patient Disposition: Home, Self-Care Activity: may shower, no straining and pelvic rest Diet: heart healthy Wound Care Instructions: follow printed instructions Patient Instructions: Antibiotic Form Patient Language: Sinhala Stand Alone Forms: General Discharge Information Follow-up/Referrals: Quincy Lopez MD [Physician] - Discharge Medications: New hydrocodone-acetaminophen 5-325 mg tablet 1 tablet PO Q4H PRN (Reason: pain) Qty: 20 0RF Continued prenat.vits,taj,dar-uvwa-ockvo Tablet 1 tablet PO DAILY Date of admission: 08/07/24 05:32 Primary Care Provider: JosefinaDara Admitting Provider: Quincy Lopez Attending physician on admission: Quincy Lopez Condition: Stable
[2024-08-07] MEDS: KETOROLAC 30 MG/ML VIAL (*BKC) IV PUSH (09:14)
[2024-08-07] MEDS: OXYTOCIN 30 UNITS/NS 500 ML 30 UNITS/500 ML BAG 125 UNITS IV CONT (10:20)
[2024-08-07] MEDS: LIDOCAINE 5% PATCH 1 PATCH (10:20)
[2024-08-07] MEDS: MORPHINE SULFATE INJ (*CRX) 10 MG/ML AMP 2 MG IV PUSH (10:54)
--- NOTE | 2024-08-07 12:33 | OBPPTRN ---
284-Patient transferred to post room #284 via stretcher. Support person present. Oriented to unit, room, information board, rooming in, admission packet and security measures. Patient verbalizes understanding.
[2024-08-07] MEDS: SIMETHICONE 80 MG TAB.CHEW PO ×2 (13:07→17:35)
[2024-08-07] MEDS: KETOROLAC 15 MG/ML VIAL (*BKC) IV PUSH ×2 (13:08→18:58)
[2024-08-07] MEDS: ACETAMINOPHEN 325 MG TABLET 650 MG PO ×2 (13:08→18:58)
[2024-08-07] MEDS: DEXTROSE 5%/0.45% SOD CHL 1,000 ML 125 ML IV CONT (14:37)
[2024-08-08] MEDS: ACETAMINOPHEN 325 MG TABLET 650 MG PO ×4 (00:46→20:05)
[2024-08-08] MEDS: KETOROLAC 15 MG/ML VIAL (*BKC) IV PUSH ×2 (00:47→07:46)
[2024-08-08 05:23] LABS: Basophils Absolute Auto 0.1 K/mm3 (0.0-0.1); Basophils Percent Auto 0.5 % (0.2-1.2); Eosinophils Absolute Auto 0.3 K/mm3 (0-0.3); Eosinophils Percent Auto 1.4 % (0-4.4); Hematocrit 28.8 % (37.0-47.0); Hemoglobin 9.1 g/dL (12.0-15.0); Immature Granulocyte Absolute 0.16 K/mm3 (0.00-0.031); Immature Granulocyte Percent A 0.8 % (0-0.5); Lymphocytes Absolute Auto 2.75 K/mm3 (0.9-3.2); Lymphocytes Percent Auto 14.6 % (18.3-44.2); Mean Corpuscular HGB Conc 31.6 g/dl (32-36); Mean Corpuscular Hemoglobin 29.9 pg (26-34); Mean Corpuscular Volume 94.7 fl (80-100); Monocytes Absolute Auto 1.6 K/mm3 (0.1-0.6); Monocytes Percent Auto 8.7 % (2.6-8.5); Platelet Count Result 319 k/mm3 (150-375); Red Blood Count 3.04 M/mm3 (4.2-5.4); Red Cell Distribution Width 13.8 % (11.5-14.5); White Blood Count 18.9 K/mm3 (4.5-10.0)
--- NOTE | 2024-08-08 07:03 | P.PNOB_ITS ---
OB - PN: Subj Subjective Date/time seen: 08/08/24 07:03 Patient comments: no complaints, pain well controlled, tolerating diet and flatus present [place] baby status: doing well OB - PN: Obj Data Labs 08/08/24 03:52 Labs: Laboratory Results - last 24 hr 08/07/24 08/08/24 05:53 03:52 WBC 18.9 H RBC 3.04 L Hgb 9.1 L Hct 28.8 L MCV 94.7 MCH 29.9 MCHC 31.6 L RDW 13.8 Plt Count 319 MPV 11.0 H Immature Gran % (Auto) 0.8 H Neut % (Auto) 74.0 H Lymph % (Auto) 14.6 L [place] % (Auto) 8.7 H Eos % (Auto) 1.4 Baso % (Auto) 0.5 Lymph # (Auto) 2.75 [place] # (Auto) 1.6 H Eos # (Auto) 0.3 Baso # (Auto) 0.1 Abs Immat Gran (auto) 0.16 H Absolute Neuts (auto) 14.0 H Absolute Nucleated RBC 0.000 Nucleated RBC % 0.0 HIV 1&2 Ab/P24 Ag 4thGn Negative OB - PN A/P Assessment and Plan (1) Term : Code(s): Z34.90 - Encounter for supervision of normal , unspecified, unspecified trimester Status: Acute Plan routione care Time Spent With Patient Time: Total time spent is greater than 50% in coordination of care (as documented) at patient's floor/unit and/or counseling patient: Review of Systems 2 Review of Systems: All systems reviewed & are unremarkable except as noted in HPI and below Exam 2 Const: General: cooperative, healthy appearing and comfortable Nutritional Appearance: average body habitus Orientation/consciousness: oriented to person, oriented to place and oriented to time HENMT: Head: normal to inspection Resp: Effort & Inspection: normal respiratory effort Cardio: Rate: regular rate Rhythm: regular rhythm Heart sounds: S1 normal heart sound present and S2 normal heart sound present GI: Inspection: normal to inspection and incision (Incision is clean dry and intact)
[2024-08-08 07:37] VITALS: BP 132/87; PULSE 91; RESP 16; TEMP 36.7; O2SAT 100
[2024-08-08] MEDS: DOCUSATE SODIUM 100 MG CAPSULE PO (07:37)
[2024-08-08] MEDS: SIMETHICONE 80 MG TAB.CHEW PO ×2 (07:37→12:24)
[2024-08-08] MEDS: POLYSACCHARIDE IRON COMPLEX 150 MG CAPSULE PO ×2 (07:46→17:15)
[2024-08-08 08:00] VITALS: BP 132/87; PULSE 91; RESP 18; TEMP 36.7; O2SAT 100
[2024-08-08] MEDS: IBUPROFEN 600 MG TABLET PO ×2 (13:50→20:05)
[2024-08-08] MEDS: HYDROcodone/acetaminophen (*CRX) 5-325 MG TABLET 1 TAB PO ×3 (16:29→23:00)
--- NOTE | 2024-08-08 16:53 | WPDANLDPN2 ---
Anes-Prog Note L&D Date/Time: 08/08/24 16:53 Comfortable throughout: section Neuraxial method: spinal Epidural/Spinal procedure site: clean & non-tender Neuro status: Neuro function grossly intact. Cardiovascular status: normal Respiratory status: normal Airway patency: baseline Mental status: baseline Post-Op hydration status: normal Vital Signs: Last Vital Signs Temp 36.7 C 08/08/24 08:00 Pulse 91 08/08/24 08:00 Resp 18 08/08/24 08:00 BP 132/87 08/08/24 08:00 Pulse Ox 100 08/08/24 08:00 O2 Del Method Room Air 08/08/24 08:00 Pain score (VAS): 2 I/O: Intake & Output 08/08/24 08/08/24 08/08/24 07:59 15:59 23:59 Intake Total 1000 Output Total 400 Balance 600 Post-procedural complaints: none Patient feedback: Patient satisfied with anesthetic care.
--- NOTE | 2024-08-08 16:54 | WPDANLDNPN2 ---
Anes-Prog Note L&D-Neuraxial Date/Time: 08/08/24 16:54 Neuraxial medications: intrathecal PF morphine Opiod-related complaints: none Patient feedback: Patient satisfied with post-operative pain management.
[2024-08-08 18:50] VITALS: BP 128/77; PULSE 86; RESP 18; TEMP 36.7; O2SAT 100
[2024-08-09] MEDS: IBUPROFEN 600 MG TABLET PO ×3 (02:00→14:36)
[2024-08-09] MEDS: ACETAMINOPHEN 325 MG TABLET 650 MG PO ×3 (02:00→14:36)
[2024-08-09] MEDS: HYDROcodone/acetaminophen (*CRX) 5-325 MG TABLET 1 TAB PO ×2 (04:05→14:36)
--- NOTE | 2024-08-09 06:44 | P.PNOB_ITS ---
OB - PN: Subj Subjective Date/time seen: 08/09/24 06:44 Patient comments: no complaints, pain well controlled and tolerating diet [place] baby status: doing well OB - PN: Obj Data Labs 08/08/24 03:52 OB - PN A/P Assessment and Plan (1) Vaginal delivery: Code(s): O80 - Encounter for full-term uncomplicated delivery Status: Acute Plan home Time Spent With Patient Time: Total time spent is greater than 50% in coordination of care (as documented) at patient's floor/unit and/or counseling patient: Review of Systems 2 Review of Systems: All systems reviewed & are unremarkable except as noted in HPI and below Exam 2 Const: General: cooperative, healthy appearing and comfortable Nutritional Appearance: average body habitus Orientation/consciousness: oriented to person, oriented to place and oriented to time HENMT: Head: normal to inspection Resp: Effort & Inspection: normal respiratory effort Cardio: Rate: regular rate Rhythm: regular rhythm Heart sounds: S1 normal heart sound present and S2 normal heart sound present GI: Inspection: normal to inspection and incision (Incision is clean dry and intact)
[2024-08-09] MEDS: POLYSACCHARIDE IRON COMPLEX 150 MG CAPSULE PO (07:48)
[2024-08-09] MEDS: SIMETHICONE 80 MG TAB.CHEW PO (07:51)
[2024-08-09] MEDS: DOCUSATE SODIUM 100 MG CAPSULE PO (07:51)
[2024-08-09 08:00] VITALS: BP 122/74; PULSE 73; RESP 18; TEMP 37.2; O2SAT 100
[2024-08-10 13:43] VITALS: BP 126/71; PULSE 88; RESP 18; TEMP 36.7; O2SAT 100
== END 2024-08-09 15:20 | disposition home or self-care (01) | DRG 788 ==
LOC: ANHLDR 06:32 → ANHOB2 12:07
PROVIDERS: Admitting Provider Obstetrics & Gynecology; PCP Nurse Practitioner; Visit Provider Obstetrics & Gynecology
PROC: 10D00Z1 Extraction of Products of Conception, Low, Open Approach (ICD-10-PCS; CPT 59514; principal; 2024-08-07 07:30)
DX: O99.892 Other specified diseases and conditions complicating childbirth (principal); Z37.0 Single live birth; Z3A.39 39 weeks gestation of pregnancy; Z87.59 Personal history of other complications of pregnancy, childbirth and the puerperium; O34.211 Maternal care for low transverse scar from previous cesarean delivery; O99.824 Streptococcus B carrier state complicating childbirth
CPT/HCPCS: 36415; 85025; 86703; A9270; G0432; J0690; J1885; J2270; J2274; J2371; J2405; J2590; J7120